=== PATIENT | female | born 1980 | race Hispanic/Latino ===

== ENCOUNTER 2017-04-26 12:02 | Inpatient (IN) | payer OTHER ==
[~2017-04-26] VITALS: Ht 154.9 cm; Wt 88.0 kg
[~2017-04-26 12:02] MED LIST: ADVAIR 500/501 EA INH; ALBUTEROL0.63 MG/3 NEB; BUDESONIDE0.5 MG/2 M NEB; CARAFATE1 GM/10 ML PO; CEFDINIR300 MG PO; CIPRO500 MG PO; GABAPENTIN100 MG; IMITREX25 MG PO; KETOROLAC TROME10 MG PO; LEVAQUIN; LINZESS PO; LORATADINE10 MG PO; LORAZEPAM1 MG PO; MEDROL4 MG/DOSE-; MIRALAX17 GM PO; MORGIDOX100 MG PO; NAPROSYN500 MG PO; NORCO 7.5-3251 EACH PO; OMEPRAZOLE40 MG PO; PANTOPRAZOLE SO40 MG PO; PEPCID20 MG PO; PREDNISONE; PROAIR HFA INH8.5 GM INH; RESTORIL15 MG PO; SINGULAIR10 MG PO; SYMBICORT 16010.2 GM INH; TESSALON PERLE100 MG PO; TOPAMAX25 MG; TYLENOL # 31 EA PO; TYLENOL WITH C1 EACH PO; ULTRAM 50MG50 MG PO; XANAX0.25 MG PO; ZYRTEC10 M3 PO
[2017-04-26] MEDS ORDERED: AZITHROMYCIN 500MG/NS 250 ML 250 ML IV SCH (12:15)
--- NOTE | 2017-04-26 14:07 | Diagnostic Imaging Report ---
PROCEDURE: X-RAY CHEST, TWO VIEWS COMPARISON: 01/10/2017. INDICATIONS: COUGH FINDINGS: Lung volumes are low with vascular crowding in the bases. No consolidation, pleural effusion, or pneumothorax. Cardiomediastinal contour and pulmonary vasculature are within normal limits. No acute osseous abnormality. CONCLUSION: Low lung volumes without acute cardiopulmonary abnormality. Dictated by: Sotero Da Silva M.D. on 04/26/2017 at 14:16 Electronically approved by: Sotero Da Silva M.D. on 04/26/2017 at 14:16
[2017-04-26 14:36] LABS: BASOPHILS % 0.6 % (0.0-1.0); EOSINOPHILS # (AUTO) 0.1 (0.0-0.4); HEMATOCRIT 39.6 % (34.2-44.1); HEMOGLOBIN 13.2 g/dL (12.0-16.0); LYMPHOCYTES # (AUTO) 0.9 (1.0-3.2); MEAN CORPUSCULAR HEMOGLOBIN 28.4 pg (28-32); MEAN CORPUSCULAR HGB CONC 33.3 g/dL (31-35); MEAN CORPUSCULAR VOLUME 85.3 fL (81-99); MONOCYTES # (AUTO) 0.2 (0.2-0.8); MONOCYTES % 3.1 % (4.4-11.3); NEUTROPHILS # (AUTO) 5.8 (2.1-6.9); NEUTROPHILS % 82.5 % (38.7-80.0); PLATELET COUNT 181 x10e3/uL (140-360); RED BLOOD COUNT 4.64 x10e6/uL (3.6-5.1); RED CELL DISTRIBUTION WIDTH 12.4 % (11.7-14.4)
[2017-04-26 14:52] LABS: ALANINE AMINOTRANSFERASE 19 IU/L (0-55); ALBUMIN 3.8 g/dL (3.5-5.0); ALBUMIN/GLOBULIN RATIO 1.2 (0.8-2.0); ALKALINE PHOSPHATASE 71 IU/L (40-150); ANION GAP 13.3 mmol/L (8-16); BLOOD UREA NITROGEN 15 mg/dL (7-26); BUN/CREATININE RATIO 19 (6-25); CALCIUM 9.1 mg/dL (8.4-10.2); CARBON DIOXIDE 27 mmol/L (22-29); CHLORIDE 107 mmol/L (98-107); CREATININE, SERUM 0.78 mg/dL (0.57-1.11); EST GLOMERULAR FILTRATION RATE > 60 ML/MIN (60-); GLUCOSE 85 mg/dL (74-118); POTASSIUM 3.3 mmol/L (3.5-5.1); SODIUM 144 mmol/L (136-145)
[2017-04-26] MEDS ORDERED: ALBUTEROL SULF 0.083% NEB SOLN 3 ML NEB NEB SCH (15:00)
[2017-04-26] MEDS ORDERED: ASPIRIN 81 MG CHEW TAB PO ONE (16:15)
[2017-04-26] MEDS ORDERED: ALBUTEROL/IPRATROPIUM 3 ML NEB NEB PRN (16:15)
[2017-04-26] MEDS ORDERED: SODIUM CHLORIDE FLUSH 10 ML SYR INJ PRN (16:15)
[2017-04-26 16:47] LABS: CREATINE KINASE MB 0.6 ng/mL (0.00-5.00)
[2017-04-26] MEDS: CEFTRIAXONE SOD 1 GM VIAL IV SCH (18:37)
[2017-04-26] MEDS ORDERED: METHYLPREDNISOLONE SOD SUCC 125 MG/2ML VIAL IV SCH (21:00)
[2017-04-26] MEDS: ZOLPIDEM TARTRATE 10 MG TAB PO PRN (21:10)
[2017-04-26] MEDS: HYDROCODONE/APAP 5MG-325MG TAB PO PRN (21:10)
[2017-04-26 21:26] VITALS: BP 107/71
[2017-04-26 21:37] VITALS: BP 107/71
[2017-04-26] MEDS: METHYLPREDNISOLONE SOD SUCC 125 MG/2ML VIAL IV SCH (21:51)
[2017-04-26 22:36] VITALS: BP 98/67
[2017-04-26] MEDS: ALBUTEROL/IPRATROPIUM 3 ML NEB NEB SCH (23:10)
[2017-04-27] VITALS (8 sets, daily range): BP systolic 89–136; BP diastolic 54–67
[2017-04-27 00:57] LABS: CREATINE KINASE MB 0.5 ng/mL (0.00-5.00)
[2017-04-27] MEDS ORDERED: HYDROMORPHONE 1MG/1ML INJ IV ONE (02:30)
[2017-04-27] MEDS ORDERED: HYDROMORPHONE 2MG/ML INJ IV ONE (03:15)
[2017-04-27] MEDS: ALBUTEROL/IPRATROPIUM 3 ML NEB NEB SCH ×6 (03:25→23:25)
[2017-04-27] MEDS: METHYLPREDNISOLONE SOD SUCC 125 MG/2ML VIAL IV SCH ×3 (05:32→22:08)
[2017-04-27 06:20] LABS: HEMATOCRIT 36.3 % (34.2-44.1); HEMOGLOBIN 12.2 g/dL (12.0-16.0); LYMPHOCYTES # (AUTO) 0.7 (1.0-3.2); LYMPHOCYTES % 9.5 % (18.0-39.1); MEAN CORPUSCULAR HEMOGLOBIN 28.2 pg (28-32); MEAN CORPUSCULAR HGB CONC 33.6 g/dL (31-35); MEAN CORPUSCULAR VOLUME 83.8 fL (81-99); MONOCYTES # (AUTO) 0.1 (0.2-0.8); MONOCYTES % 1.9 % (4.4-11.3); NEUTROPHILS # (AUTO) 6.1 (2.1-6.9); PLATELET COUNT 174 x10e3/uL (140-360); RED BLOOD COUNT 4.33 x10e6/uL (3.6-5.1)
[2017-04-27 06:47] LABS: BLOOD UREA NITROGEN 15 mg/dL (7-26); BUN/CREATININE RATIO 22 (6-25); CALCIUM 9.4 mg/dL (8.4-10.2); CARBON DIOXIDE 21 mmol/L (22-29); CHLORIDE 107 mmol/L (98-107); CREATINE KINASE 36 IU/L (29-168); CREATININE, SERUM 0.68 mg/dL (0.57-1.11); EST GLOMERULAR FILTRATION RATE > 60 ML/MIN (60-); GLUCOSE 135 mg/dL (74-118); SODIUM 141 mmol/L (136-145)
[2017-04-27] MEDS ORDERED: ALBUTEROL SULFATE HFA 8GM INHALATION AEROSOL INH PRN (08:45)
[2017-04-27] MEDS ORDERED: SUMATRIPTAN SUCCINATE 25 MG TAB PO PRN (08:45)
[2017-04-27] MEDS ORDERED: HYDROMORPHONE 1MG/1ML INJ IV PRN (09:00)
[2017-04-27] MEDS: SUCRALFATE 1 GM/10 ML SUSP PO SCH (09:36)
[2017-04-27] MEDS: FAMOTIDINE 20 MG TAB PO SCH ×2 (09:36→17:09)
[2017-04-27] MEDS: MONTELUKAST SODIUM 10 MG TAB PO SCH (09:36)
[2017-04-27] MEDS: PANTOPRAZOLE SOD 40 MG TABEC PO SCH ×2 (09:36→17:09)
[2017-04-27] MEDS: AZITHROMYCIN 500MG/NS 250 ML 250 ML IV SCH (09:36)
[2017-04-27] MEDS: HYDROCODONE/APAP 5MG-325MG TAB PO PRN (09:41)
[2017-04-27] MEDS: GABAPENTIN 100 MG CAP PO SCH ×3 (09:41→22:08)
[2017-04-27] MEDS: BUDESONIDE/FORMOTEROL 160/4.5MCG INHALER INH PRN (11:00)
--- NOTE | 2017-04-27 12:55 | Diagnostic Imaging Report ---
Examination: CT Face without Contrast History:Nasal congestion. Asthma. Acute sinusitis. Comparison studies: None Technique: Axial images were obtained through the maxillofacial region. Coronal and sagittal reconstructions obtained from the axial data. Intravenous contrast: None Findings: Soft tissues: No abnormalities. Bones: No fractures or bony abnormalities. Orbits: Globes: Intact Extra or intraconal abnormalities: None. Paranasal sinuses: Retention cyst along the alveolar recess of the right maxillary sinus. Patent right ostiomeatal unit. There is an impacted left maxillary molar tooth. Remaining paranasal sinuses are clear which included their respective drainage pathways. Nasal cavity: Mild hypertrophy of the bilateral inferior and middle turbinates. Aerated bilateral middle turbinates. Leftward deviation of the nasal septum with a small spur. IMPRESSION: 1. Retention cyst within the right maxillary sinus. Patent right ostiomeatal unit. 2. Impacted left maxillary molar tooth in the alveolar recess of the left maxillary sinus. 3. Leftward deviation of the nasal septum with small spur. Signed by: Dr. Allison Beltre M.D. on 04/27/2017 12:51 PM
[2017-04-27] MEDS: HYDROMORPHONE 2MG/ML INJ IV PRN ×2 (14:05→20:34)
[2017-04-27] MEDS ORDERED: GABAPENTIN 100 MG CAP PO SCH (15:00)
[2017-04-27] MEDS: CEFTRIAXONE SOD 1 GM VIAL IV SCH (17:09)
[2017-04-27] MEDS: ZOLPIDEM TARTRATE 10 MG TAB PO PRN (22:13)
[2017-04-28 00:19] VITALS: BP 93/70
[2017-04-28] MEDS: HYDROMORPHONE 2MG/ML INJ IV PRN ×5 (02:59→22:52)
[2017-04-28] MEDS: ALBUTEROL/IPRATROPIUM 3 ML NEB NEB SCH ×5 (03:10→20:15)
[2017-04-28 06:32] VITALS: BP 93/61
[2017-04-28 08:00] VITALS: BP 105/57
[2017-04-28] MEDS ORDERED: SODIUM CHLORIDE 0.9% 250ML 250 ML ONE (09:32)
[2017-04-28] MEDS: MONTELUKAST SODIUM 10 MG TAB PO SCH (09:45)
[2017-04-28] MEDS: AZITHROMYCIN 500MG/NS 250 ML 250 ML IV SCH (09:45)
[2017-04-28] MEDS: PANTOPRAZOLE SOD 40 MG TABEC PO SCH ×2 (09:45→16:20)
[2017-04-28] MEDS: ONDANSETRON HCL INJ 2 MG/ML VIAL IV PRN ×2 (09:45→22:52)
[2017-04-28] MEDS: GABAPENTIN 100 MG CAP PO SCH ×3 (09:45→20:47)
[2017-04-28] MEDS: METHYLPREDNISOLONE SOD SUCC 125 MG/2ML VIAL IV SCH ×2 (09:45→20:47)
[2017-04-28] MEDS: SUCRALFATE 1 GM/10 ML SUSP PO SCH (09:45)
[2017-04-28] MEDS: FAMOTIDINE 20 MG TAB PO SCH ×2 (09:45→16:20)
[2017-04-28 12:00] VITALS: BP_SYST 98; BP_SYST 99; BP_DIAS 62; BP_DIAS 63
[2017-04-28 16:00] VITALS: BP 118/62
[2017-04-28] MEDS: CEFTRIAXONE SOD 1 GM VIAL IV SCH (16:20)
[2017-04-28 20:00] VITALS: BP 107/61
[2017-04-28] MEDS: SALINE 0.65% NAS SOLN 1 SPRAY BTL SCH (20:47)
[2017-04-28] MEDS: IPRATROPIUM BROMIDE 0.06% 42 MCG NASPR NS SCH (21:00)
[2017-04-28] MEDS ORDERED: LORATADINE 10 MG TAB PO ONE (21:30)
[2017-04-28] MEDS: ZOLPIDEM TARTRATE 10 MG TAB PO PRN (22:08)
[2017-04-29] VITALS: BP 110/66
[2017-04-29] MEDS ORDERED: DIPHENHYDRAMINE HCL INJ 50 MG/ML VIAL IV STA (00:05)
[2017-04-29] MEDS ORDERED: DIPHENHYDRAMINE HCL INJ 1 ML ONE (00:12)
[2017-04-29] MEDS: ALBUTEROL/IPRATROPIUM 3 ML NEB NEB SCH ×6 (00:45→21:15)
--- NOTE | 2017-04-29 00:57 | Consultation ---
DATE OF CONSULTATION: April 28, 2017 HOSPITAL CONSULTATION HISTORY OF PRESENT ILLNESS: I was kindly asked to see this pleasant 36-year-old woman known to me from previous evaluation and treatment, now presented with an exacerbation of her chronic asthma. She has a long history of chronic rhinosinusitis and approximately 18 months ago underwent balloon sinuplasty by me. She did well in the immediate postoperative period with significant improvement with her facial pain and pressure. However, she has had continued postnasal drainage and intermittent anterior facial pain and pressure. In addition, she has had multiple and severe exacerbations of her asthma which has been recalcitrant to medical therapy. She has required multiple hospitalizations. During this admission, she had a CT scan of her paranasal sinuses which showed a retention cyst in the right maxillary sinus and a patent right ostiomeatal unit. She had impacted left maxillary and molar tooth in the alveolar recess and a left nasal septal deviation with a small spur. In addition, she had a maury bullosa of the middle turbinate bilaterally. Her history of present illness, past medical history, and past surgical history were reviewed in detail in the chart and is pertinent as above. PHYSICAL EXAMINATION: The tympanic membranes and external auditory canals are normal. There is a moderate nasal septal deviation to the left. There is minimum mucosal edema. She has a thick postnasal drainage. There is no palpable cervical adenopathy on fiberoptic diagnostic rhinoscopy. There is no active infection identified at the ostiomeatal complex bilaterally. ASSESSMENT 1. Chronic rhinosinusitis. 2. Possible allergy contributing to symptom complex. 3. Nasal septal deviation. PLAN 1. No additional inpatient surgical intervention indicated at this time. 2. Outpatient allergy evaluation and consideration of surgical intervention versus immunotherapy based on clinical course. 3. Topical therapy while in the hospital with Flonase, ipratropium, and nasal saline. Job#: [id number] SANJAY
[2017-04-29] MEDS: HYDROMORPHONE 2MG/ML INJ IV PRN ×5 (03:00→21:50)
[2017-04-29] MEDS: ONDANSETRON HCL INJ 2 MG/ML VIAL IV PRN ×2 (03:00→21:50)
[2017-04-29] MEDS: SALINE 0.65% NAS SOLN 1 SPRAY BTL SCH ×5 (05:25→21:50)
[2017-04-29 08:00] VITALS: BP 131/62
[2017-04-29] MEDS: IPRATROPIUM BROMIDE 0.06% 42 MCG NASPR NS SCH ×3 (09:00→22:05)
[2017-04-29] MEDS: BUDESONIDE/FORMOTEROL 160/4.5MCG INHALER INH PRN (10:00)
[2017-04-29] MEDS: AZITHROMYCIN 500MG/NS 250 ML 250 ML IV SCH (10:23)
[2017-04-29] MEDS: FLUTICASONE PROPIONATE NASAL SPRAY NS SCH (10:24)
[2017-04-29] MEDS: GABAPENTIN 100 MG CAP PO SCH ×3 (10:24→21:50)
[2017-04-29] MEDS: SUCRALFATE 1 GM/10 ML SUSP PO SCH (10:24)
[2017-04-29] MEDS: FAMOTIDINE 20 MG TAB PO SCH ×2 (10:24→16:49)
[2017-04-29] MEDS: METHYLPREDNISOLONE SOD SUCC 125 MG/2ML VIAL IV SCH ×2 (10:24→21:49)
[2017-04-29] MEDS: PANTOPRAZOLE SOD 40 MG TABEC PO SCH ×2 (10:24→16:49)
[2017-04-29] MEDS ORDERED: DIPHENHYDRAMINE HCL INJ 50 MG/ML VIAL IV ONE (11:00)
[2017-04-29 12:00] VITALS: BP 135/60
[2017-04-29] MEDS: MONTELUKAST SODIUM 10 MG TAB PO SCH (13:50)
[2017-04-29] MEDS: DIPHENHYDRAMINE HCL INJ 50 MG/ML VIAL IV PRN ×3 (15:32→23:40)
[2017-04-29 16:00] VITALS: BP 110/73
[2017-04-30] MEDS: ZOLPIDEM TARTRATE 10 MG TAB PO PRN (00:06)
[2017-04-30] MEDS: HYDROMORPHONE 2MG/ML INJ IV PRN ×5 (01:56→20:55)
[2017-04-30] MEDS: ONDANSETRON HCL INJ 2 MG/ML VIAL IV PRN ×2 (02:00→06:14)
[2017-04-30] MEDS: ALBUTEROL/IPRATROPIUM 3 ML NEB NEB SCH ×7 (02:00→23:17)
[2017-04-30] MEDS: DIPHENHYDRAMINE HCL INJ 50 MG/ML VIAL IV PRN ×4 (03:51→21:35)
[2017-04-30] MEDS: SALINE 0.65% NAS SOLN 1 SPRAY BTL SCH ×5 (06:14→20:55)
[2017-04-30 07:58] VITALS: BP 117/66
[2017-04-30 08:24] VITALS: BP 117/60
[2017-04-30] MEDS: IPRATROPIUM BROMIDE 0.06% 42 MCG NASPR NS SCH ×2 (08:24→15:57)
[2017-04-30] MEDS: METHYLPREDNISOLONE SOD SUCC 125 MG/2ML VIAL IV SCH ×2 (08:24→20:55)
[2017-04-30] MEDS: AZITHROMYCIN 500MG/NS 250 ML 250 ML IV SCH (08:24)
[2017-04-30] MEDS: FLUTICASONE PROPIONATE NASAL SPRAY NS SCH (08:24)
[2017-04-30] MEDS: SUCRALFATE 1 GM/10 ML SUSP PO SCH (09:00)
[2017-04-30] MEDS: GABAPENTIN 100 MG CAP PO SCH ×3 (09:00→20:55)
[2017-04-30] MEDS: PANTOPRAZOLE SOD 40 MG TABEC PO SCH ×2 (09:00→16:04)
[2017-04-30] MEDS: FAMOTIDINE 20 MG TAB PO SCH ×2 (09:00→16:04)
[2017-04-30] MEDS: MONTELUKAST SODIUM 10 MG TAB PO SCH (09:00)
[2017-04-30 12:11] VITALS: BP 109/59
[2017-04-30] MEDS ORDERED: OXYMETAZOLINE HCL 0.05% NAS 1 SPRAY BTL ONE (14:06)
[2017-04-30] MEDS ORDERED: EPINEPHRINE HCL INJ 1 MG/ML AMP ONE (14:06)
[2017-04-30] MEDS ORDERED: LIDOCAINE JELLY 2% 10ML URO-JET ONE (14:06)
[2017-04-30] MEDS ORDERED: LIDOCAINE HCL 1% 30ML-PF VIAL ONE (14:07)
[2017-04-30] MEDS ORDERED: LIDOCAINE HCL 4% 50 ML BTL ONE (14:08)
[2017-04-30 16:19] VITALS: BP 111/73
[2017-04-30] MEDS ORDERED: DEXAMETHASONE SOD PHOS INJ 4 MG/ML VIAL ONE (17:12)
[2017-04-30] MEDS ORDERED: PROPOFOL IV EMULSION 10 MG/ML 20 ML VIAL ONE (17:12)
[2017-04-30] MEDS ORDERED: LIDOCAINE HCL 2% LOCAL INJ 5 ML SDV VIAL INJ ONE (17:12)
[2017-04-30] MEDS ORDERED: MIDAZOLAM HCL 5MG/ML 2ML VIAL ONE (17:16)
[2017-04-30] MEDS ORDERED: FENTANYL CITRATE/PF 100MCG/2 ML INJ ONE (17:16)
[2017-04-30 20:00] VITALS: BP 98/85
[2017-05-01] VITALS: BP_SYST 103; BP_SYST 106; BP_DIAS 69; BP_DIAS 78
[2017-05-01] MEDS: ZOLPIDEM TARTRATE 10 MG TAB PO PRN (00:53)
[2017-05-01] MEDS: HYDROMORPHONE 2MG/ML INJ IV PRN ×4 (00:54→20:33)
[2017-05-01] MEDS: DIPHENHYDRAMINE HCL INJ 50 MG/ML VIAL IV PRN ×5 (02:07→22:30)
[2017-05-01] MEDS: ALBUTEROL/IPRATROPIUM 3 ML NEB NEB SCH ×3 (03:07→11:30)
[2017-05-01] MEDS: ONDANSETRON HCL INJ 2 MG/ML VIAL IV PRN ×2 (03:52→22:55)
[2017-05-01] MEDS: SALINE 0.65% NAS SOLN 1 SPRAY BTL SCH ×5 (05:50→20:33)
[2017-05-01 07:24] VITALS: BP 109/66
[2017-05-01] MEDS ORDERED: SUCRALFATE 1 GM/10 ML SUSP PO SCH (07:30)
[2017-05-01 07:35] VITALS: BP 116/68
[2017-05-01] MEDS: FAMOTIDINE 20 MG TAB PO SCH ×2 (08:32→16:00)
[2017-05-01] MEDS: GABAPENTIN 100 MG CAP PO SCH ×3 (08:32→20:33)
[2017-05-01] MEDS: METHYLPREDNISOLONE SOD SUCC 125 MG/2ML VIAL IV SCH ×2 (08:32→20:33)
[2017-05-01] MEDS: AZITHROMYCIN 500MG/NS 250 ML 250 ML IV SCH (08:32)
[2017-05-01] MEDS: PANTOPRAZOLE SOD 40 MG TABEC PO SCH ×2 (08:32→16:00)
[2017-05-01] MEDS: FLUTICASONE PROPIONATE NASAL SPRAY NS SCH (08:32)
[2017-05-01] MEDS: MONTELUKAST SODIUM 10 MG TAB PO SCH (08:32)
[2017-05-01] MEDS: SUCRALFATE 1 GM TAB PO SCH (08:32)
[2017-05-01 12:00] VITALS: BP 116/68
[2017-05-01] MEDS: VANCOMYCIN 1GM/NS 250 ML 250 ML IV SCH (14:18)
[2017-05-01] MEDS: LEVALBUTEROL HCL SOLN NEBU 1.25 MG/3 ML NEB INH SCH ×3 (15:10→23:30)
[2017-05-01 16:00] VITALS: BP 112/75
[2017-05-01] MEDS: HYDROCODONE/APAP 5MG-325MG TAB PO PRN (16:00)
[2017-05-01] MEDS: IPRATROPIUM BROMIDE 0.06% 42 MCG NASPR NS SCH (19:50)
[2017-05-01 23:00] VITALS: BP 107/70
[2017-05-02] MEDS: VANCOMYCIN 1GM/NS 250 ML 250 ML IV SCH ×2 (00:51→15:59)
[2017-05-02] MEDS: HYDROMORPHONE 2MG/ML INJ IV PRN ×6 (00:51→22:00)
[2017-05-02] MEDS: DIPHENHYDRAMINE HCL INJ 50 MG/ML VIAL IV PRN ×2 (02:29→06:45)
[2017-05-02] MEDS: LEVALBUTEROL HCL SOLN NEBU 1.25 MG/3 ML NEB INH SCH ×5 (03:22→19:45)
[2017-05-02 04:00] VITALS: BP 108/71
[2017-05-02] MEDS: ONDANSETRON HCL INJ 2 MG/ML VIAL IV PRN (05:02)
[2017-05-02 06:43] LABS: BASOPHILS # (AUTO) 0.1 (0.0-0.1); HEMATOCRIT 37.4 % (34.2-44.1); HEMOGLOBIN 12.6 g/dL (12.0-16.0); LYMPHOCYTES # (AUTO) 0.6 (1.0-3.2); LYMPHOCYTES % 6.5 % (18.0-39.1); MEAN CORPUSCULAR HEMOGLOBIN 28.6 pg (28-32); MEAN CORPUSCULAR HGB CONC 33.7 g/dL (31-35); MEAN CORPUSCULAR VOLUME 84.8 fL (81-99); MONOCYTES # (AUTO) 0.7 (0.2-0.8); MONOCYTES % 7.3 % (4.4-11.3); NEUTROPHILS # (AUTO) 6.8 (2.1-6.9); NEUTROPHILS % 75.5 % (38.7-80.0); PLATELET COUNT 179 x10e3/uL (140-360); RED BLOOD COUNT 4.41 x10e6/uL (3.6-5.1); RED CELL DISTRIBUTION WIDTH 12.3 % (11.7-14.4)
[2017-05-02] MEDS: SALINE 0.65% NAS SOLN 1 SPRAY BTL SCH ×5 (06:45→21:07)
[2017-05-02 07:11] LABS: ALANINE AMINOTRANSFERASE 41 IU/L (0-55); ALBUMIN 3.3 g/dL (3.5-5.0); ALKALINE PHOSPHATASE 70 IU/L (40-150); ANION GAP 13.7 mmol/L (8-16); BLOOD UREA NITROGEN 14 mg/dL (7-26); BUN/CREATININE RATIO 20 (6-25); CALCIUM 9.2 mg/dL (8.4-10.2); CARBON DIOXIDE 26 mmol/L (22-29); CHLORIDE 102 mmol/L (98-107); CREATININE, SERUM 0.69 mg/dL (0.57-1.11); EST GLOMERULAR FILTRATION RATE > 60 ML/MIN (60-); GLUCOSE 117 mg/dL (74-118); POTASSIUM 3.7 mmol/L (3.5-5.1); SODIUM 138 mmol/L (136-145)
[2017-05-02 07:20] VITALS: BP 109/71
[2017-05-02 08:44] VITALS: BP 109/71
[2017-05-02] MEDS: METHYLPREDNISOLONE SOD SUCC 125 MG/2ML VIAL IV SCH ×2 (08:57→21:07)
[2017-05-02] MEDS: AZITHROMYCIN 500MG/NS 250 ML 250 ML IV SCH (08:57)
[2017-05-02] MEDS: SUCRALFATE 1 GM TAB PO SCH (08:57)
[2017-05-02] MEDS: FLUTICASONE PROPIONATE NASAL SPRAY NS SCH (08:58)
[2017-05-02] MEDS: PANTOPRAZOLE SOD 40 MG TABEC PO SCH ×2 (08:58→17:23)
[2017-05-02] MEDS: MONTELUKAST SODIUM 10 MG TAB PO SCH (08:58)
[2017-05-02] MEDS: GABAPENTIN 100 MG CAP PO SCH ×3 (08:58→21:07)
[2017-05-02] MEDS: FAMOTIDINE 20 MG TAB PO SCH ×2 (08:58→17:23)
[2017-05-02] MEDS: IPRATROPIUM BROMIDE 0.06% 42 MCG NASPR NS SCH (09:13)
[2017-05-02 11:08] LABS: LYMPHOCYTES % (MANUAL) 14 % (19-48); MONOCYTES % (MANUAL) 6 % (3.4-9.0); NEUTROPHILS % (MANUAL) 80 % (40-74); PLATELET MORPHOLOGY COMMENT NORMAL; RBC MORPHOLOGY COMMENT NORMAL
[2017-05-02 11:09] LABS: PLATELET ESTIMATE ADEQUATE
[2017-05-02] MEDS ORDERED: TEMAZEPAM 15 MG CAP PO PRN (11:45)
[2017-05-02 12:00] VITALS: BP 106/72
[2017-05-02] MEDS: PROMETHAZINE 12.5MG/ NACL 0.9% 12.5 MG/50 ML BAG IV PRN ×2 (14:58→22:15)
[2017-05-02 16:00] VITALS: BP 104/67
[2017-05-02] MEDS ORDERED: VANCOMYCIN HCL 1.25 GM in SODIUM CHLORIDE 0.9% 250ML 300 ML IV SCH (16:30)
--- NOTE | 2017-05-02 16:35 | Consultation ---
DATE OF CONSULTATION: May 02, 2017 REASON FOR CONSULTATION: Hypogammaglobulinemia. Thank you, Dr. Galindo, for asking me to see this female. HISTORY: The patient is a 36-year-old woman referred for hypogammaglobulinemia. She was admitted with exacerbation of chronic persistent asthma. She presented on April 26, 2017, with severe wheezing, shortness of breath and cough. At triage, she was noted to have temperature of 98.6 degrees Fahrenheit, pulse 87, respiratory rate 20, blood pressure 117/81, and oxygen saturation 99% (FIO2 unknown). Initial laboratory studies showed white blood cell count of 7060 and negative influenza antigen test. Chest x-ray showed low lung volumes without acute abnormality. The patient was evaluated with bronchoscopy and bronchoalveolar lavage later grew methicillin-resistant Staphylococcus aureus. Also, the patient had a immunoglobulin test, which showed low immunoglobulin G and immunoglobulin A. 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 However, she claims that she was told that she could not donate blood); gastroesophageal reflux disease and depression. PAST SURGICAL HISTORY: Balloon sinuplasty, hysterectomy for large fibroid, bilateral oophorectomy for ovarian cysts, appendectomy, pelvic abscess drainage. ALLERGIES: ASPIRIN, ?? CEFTRIAXONE. HOWEVER, THE PATIENT IS UNSURE IF CEFTRIAXONE ACTUALLY CAUSED ALLERGIES. SHE HAD ITCHING ON MULTIPLE MEDICATIONS, WHICH WAS BLAMED ON CEFTRIAXONE. MEDICATIONS: See MAR. The current antimicrobials are: 1. Azithromycin 500 mg IVPB q.24 h. 2. Vancomycin 1 g IVPB q.12 h. 3. Fluconazole 100 mg p.o. daily for oral thrush. IMMUNIZATIONS: The patient no longer receives influenza vaccination because she claims that each time she got it she became sick and was admitted to the hospital. She does not recall receiving a pneumococcal vaccination, and wants to consider getting pneumococcal vaccination. FAMILY HISTORY: Noncontributory. SOCIAL HISTORY: No alcohol or tobacco use. REVIEW OF SYSTEMS: As per history of present illness. PHYSICAL EXAMINATION GENERAL: Mildly dyspneic. VITAL SIGNS: T-max 98, pulse 83, respiratory rate 18, blood pressure 116/68, weight 194 pounds. HEENT: Normocephalic. There is no icterus or injection of conjunctivae. There is no ear discharge. There is edema of nasal mucosa, but no discharge. Moist oral mucosa. Mild pharyngeal erythema, but no exudate. NECK: Supple. No lymphadenopathy. LUNGS: Bilateral rhonchi. HEART: Normal S1 and S2. ABDOMEN: Soft and nontender. EXTREMITIES: There is no edema, clubbing or cyanosis. SKIN: There is mild erythema of the left antecubital fossa. BRAZING FURNACE OPERATOR: Awake, alert and oriented to person, place and time. Nonfocal. LABORATORY: WBC 9030, hemoglobin 12.6, platelets 179,000, neutrophils 75.5, lymphs 6.5, monos 7.3, eosinophils 0, basophils 1. BUN 14, creatinine 0.69, AST 31, ALT 41, alk phos 70, total bilirubin 0.3. Vancomycin trough 4. IMPRESSION 1. Methicillin-resistant Staphylococcus aureus bronchitis. 2. Chronic persistent asthma with acute exacerbation. 3. Hypogammaglobulinemia. 4. Methicillin-resistant Staphylococcus aureus nasal colonization by history. 5. Chronic rhinosinusitis. PLAN 1. Change vancomycin to 15 mg/kg IVPB q.12 h. The patient should be given pneumococcal vaccination if she agrees. Stop azithromycin. 2. The patient should be referred to allergy pump assembler for outpatient immune globulin testing following immunization. Job#: [id number] LEORA GRACE
[2017-05-02] MEDS: TOBRAMYCIN 1.2GM BULK BOTTLE INH SCH (20:15)
[2017-05-02 20:48] VITALS: BP 106/77
[2017-05-03] MEDS: LEVALBUTEROL HCL SOLN NEBU 1.25 MG/3 ML NEB INH SCH ×6 (00:15→23:45)
[2017-05-03 01:42] VITALS: BP 104/78
[2017-05-03] MEDS: HYDROMORPHONE 2MG/ML INJ IV PRN ×5 (03:49→23:52)
[2017-05-03] MEDS: VANCOMYCIN HCL 1.25 GM in SODIUM CHLORIDE 0.9% 250ML 300 ML IV SCH ×2 (03:58→16:00)
[2017-05-03 05:09] VITALS: BP 110/67
[2017-05-03] MEDS: SALINE 0.65% NAS SOLN 1 SPRAY BTL SCH ×5 (05:26→21:49)
[2017-05-03] MEDS: PROMETHAZINE 12.5MG/ NACL 0.9% 12.5 MG/50 ML BAG IV PRN ×2 (06:07→21:57)
[2017-05-03] MEDS: TOBRAMYCIN 1.2GM BULK BOTTLE INH SCH (07:45)
[2017-05-03 08:00] VITALS: BP 107/76
[2017-05-03] MEDS: FLUTICASONE PROPIONATE NASAL SPRAY NS SCH (09:00)
[2017-05-03] MEDS: FAMOTIDINE 20 MG TAB PO SCH ×2 (09:30→16:59)
[2017-05-03] MEDS: SUCRALFATE 1 GM TAB PO SCH (09:30)
[2017-05-03] MEDS: GABAPENTIN 100 MG CAP PO SCH ×3 (09:30→21:49)
[2017-05-03] MEDS: MONTELUKAST SODIUM 10 MG TAB PO SCH (09:30)
[2017-05-03] MEDS: PANTOPRAZOLE SOD 40 MG TABEC PO SCH ×2 (09:30→16:59)
[2017-05-03] MEDS: METHYLPREDNISOLONE SOD SUCC 125 MG/2ML VIAL IV SCH ×2 (09:30→21:49)
[2017-05-03 12:00] VITALS: BP 103/76
[2017-05-03] MEDS: FLUCONAZOLE 100 MG TAB PO SCH (14:08)
--- NOTE | 2017-05-03 15:09 | Diagnostic Imaging Report ---
PROCEDURE: Frontal and lateral views of the chest. COMPARISON: 04/26/17 INDICATIONS: CHRONIC ASTHMA, LUNG INFECTION FINDINGS: Lines/tubes: None. Lungs: The lungs are well inflated and clear. There is no evidence of pneumonia or pulmonary edema. Pleura: There is no pleural effusion or pneumothorax. Heart and mediastinum: The heart and the mediastinum are normal. Bones: No acute bony abnormality. IMPRESSION: 1. No acute cardiopulmonary disease. Dictated by: Ronald Herrera M.D. on 05/03/2017 at 15:17 Electronically approved by: Ronald Herrera M.D. on 05/03/2017 at 15:17
[2017-05-03 16:00] VITALS: BP 103/83
[2017-05-03 20:00] VITALS: BP 93/68
--- NOTE | 2017-05-03 20:40 | Diagnostic Imaging Report ---
EXAMINATION: CHEST XRAY LINE PLACEMENT INDICATION: \S\picc line placement \S\[id number] \S\1941 COMPARISON: Chest radiograph 05/03/2017 at 1434 hours FINDINGS: AP view TUBES and LINES: Right PICC tip overlies the mid superior vena cava. LUNGS: Lungs are well inflated. Lungs are clear. There is no evidence of pneumonia or pulmonary edema. PLEURA: No pleural effusion or pneumothorax. HEART AND MEDIASTINUM: The cardiomediastinal silhouette is unremarkable. BONES AND SOFT TISSUES: No acute osseous lesion. Soft tissues are unremarkable. UPPER ABDOMEN: No free air under the diaphragm. IMPRESSION: Right PICC tip overlies the mid superior vena cava. No acute thoracic abnormality. Signed by: DR. Amol Cho MD on 05/03/2017 8:36 PM
[2017-05-03] MEDS: IPRATROPIUM BROMIDE 0.06% 42 MCG NASPR NS SCH (21:00)
[2017-05-04] MEDS: LEVALBUTEROL HCL SOLN NEBU 1.25 MG/3 ML NEB INH SCH ×4 (03:40→15:05)
[2017-05-04] MEDS: VANCOMYCIN HCL 1.25 GM in SODIUM CHLORIDE 0.9% 250ML 300 ML IV SCH ×2 (03:51→16:00)
[2017-05-04] MEDS: HYDROMORPHONE 2MG/ML INJ IV PRN ×5 (03:52→19:14)
[2017-05-04] MEDS: SALINE 0.65% NAS SOLN 1 SPRAY BTL SCH ×4 (05:17→18:00)
[2017-05-04] MEDS: BUDESONIDE/FORMOTEROL 160/4.5MCG INHALER INH PRN (07:25)
[2017-05-04] MEDS: TOBRAMYCIN 1.2GM BULK BOTTLE INH SCH (07:30)
[2017-05-04] MEDS: SUCRALFATE 1 GM TAB PO SCH (07:45)
[2017-05-04] MEDS: PANTOPRAZOLE SOD 40 MG TABEC PO SCH ×2 (08:00→15:55)
[2017-05-04] MEDS: FAMOTIDINE 20 MG TAB PO SCH ×2 (08:00→15:55)
[2017-05-04] MEDS: FLUCONAZOLE 100 MG TAB PO SCH (08:00)
[2017-05-04] MEDS: MONTELUKAST SODIUM 10 MG TAB PO SCH (08:00)
[2017-05-04] MEDS: GABAPENTIN 100 MG CAP PO SCH ×2 (08:00→15:55)
[2017-05-04 08:13] VITALS: BP 98/71
[2017-05-04] MEDS: FLUTICASONE PROPIONATE NASAL SPRAY NS SCH (09:00)
[2017-05-04] MEDS: PROMETHAZINE 12.5MG/ NACL 0.9% 12.5 MG/50 ML BAG IV PRN (11:00)
[2017-05-04] MEDS: METHYLPREDNISOLONE SOD SUCC 125 MG/2ML VIAL IV SCH (11:45)
[2017-05-04 12:00] VITALS: BP 115/78
[2017-05-04 16:24] VITALS: BP 122/68
--- NOTE | 2017-06-14 13:01 | Operative Report ---
DATE OF PROCEDURE: PROCEDURE PERFORMED: Bronchoscopy. CONSENT: Consent was obtained from the patient. ANESTHESIA: The anesthesia service provided MAC sedation. PROCEDURE: The patient was placed in the supine position. The upper airway was visualized. It was normal. The scope was advanced into the trachea. The tracheal mucosa was normal. The ramon appeared normal. The scope was repositioned into the right tracheobronchial tree. Mucus was removed from the right mainstem bronchus and bronchus intermedius. Mucus was also removed from the right upper lobe orifice as well as the right lower lobe orifice. There were no endobronchial lesions to the subsegmental level. The scope was then repositioned into the left tracheobronchial tree. The lingula and left upper lobe were examined. Mucus was removed from the orifice. The left lower lobe was examined. Mucus was removed from the orifice. There were no endobronchial lesions. COMPLICATIONS: None. ESTIMATED BLOOD LOSS: None. Job#: [id number] HUGO
--- NOTE | 2017-06-14 13:06 | Discharge Summary ---
DISCHARGE DIAGNOSES 1. Asthma with acute exacerbation. 2. Sinusitis. 3. Hypogammaglobulinemia. 4. Methicillin-resistant Staphylococcus aureus tracheobronchitis. CONSULTING PHYSICIANS: Dr. Florentino Gamboa of infectious disease. HISTORY OF PRESENT ILLNESS: The patient is a 36-year-old with a history of chronic persistent asthma. She has not been responding well to medications as an outpatient including Solu-Medrol and bronchodilators. HOSPITAL COURSE: The patient was admitted. She was started on IV Solu-Medrol along with bronchodilators. She also had a bronchoscopy performed. Her sputum grew out MRSA. She was seen by infectious disease and started on antibiotics. Her immunoglobulin levels were also low. She had a low IgA and a low IgG. The patient was not improving. We did not have immunology available at the hospital. She was consequently transferred to [facility]. DISPOSITION: Patient was transferred to [facility]. COLT MARISCAL MD Job#: [id number] VAS
== END 2017-05-04 19:18 | disposition short-term general hospital (02) | DRG 164 ==
LOC: ER 12:02 → ERHOLD 16:57 → IMCU 18:34 → OBSVTOIN 04-27 09:10 → MED/SURG2 04-27 19:46
PROVIDERS: ADMIT Internal Medicine Critical Care Medicine; ATTEND Internal Medicine Critical Care Medicine
PROC: 0BC68ZZ Extirpation of Matter from Right Lower Lobe Bronchus, Via Natural or Artificial Opening Endoscopic (ICD-10-PCS; 2017-04-30 14:00)
PROC: 0BCG8ZZ Extirpation of Matter from Left Upper Lung Lobe, Via Natural or Artificial Opening Endoscopic (ICD-10-PCS; 2017-04-30 14:00)
PROC: 0BCC8ZZ Extirpation of Matter from Right Upper Lung Lobe, Via Natural or Artificial Opening Endoscopic (ICD-10-PCS; 2017-04-30 14:00)
PROC: 0BCJ8ZZ Extirpation of Matter from Left Lower Lung Lobe, Via Natural or Artificial Opening Endoscopic (ICD-10-PCS; 2017-04-30 14:00)
PROC: 0BC38ZZ Extirpation of Matter from Right Main Bronchus, Via Natural or Artificial Opening Endoscopic (ICD-10-PCS; 2017-04-30 14:00)
PROC: 02HV33Z Insertion of Infusion Device into Superior Vena Cava, Percutaneous Approach (ICD-10-PCS; principal; 2017-05-03)
DX: J20.8 Acute bronchitis due to other specified organisms (principal); J45.51 Severe persistent asthma with (acute) exacerbation; D80.1 Nonfamilial hypogammaglobulinemia; J20.9 Acute bronchitis, unspecified; K21.9 Gastro-esophageal reflux disease without esophagitis; B95.62 Methicillin resistant Staphylococcus aureus infection as the cause of diseases classified elsewhere; Z22.322 Carrier or suspected carrier of Methicillin resistant Staphylococcus aureus; J32.9 Chronic sinusitis, unspecified; J34.2 Deviated nasal septum; Z88.6 Allergy status to analgesic agent; Z88.1 Allergy status to other antibiotic agents; Z91.013 Allergy to seafood; Z91.018 Allergy to other foods
CPT/HCPCS: 31623; 36415; 36569; 70486; 71045; 71046; 80048; 80053; 80202; 82103; 82550; 82553; 82784; 82785; 84484; 85025; 86001; 86003; 86606; 87102; 87116; 87186; 87205; 87206; 87335; 87400; 94640; 94660; 99284; G0378; J0171; J0456; J0696; J1100; J1200; J2001; J2250; J2405; J2550; J2930; J3370; J7050

== ENCOUNTER 2017-05-28 13:17 | Inpatient (IN) | payer OTHER ==
[~2017-05-28] VITALS: Ht 154.9 cm; Wt 103.1 kg
--- OUTSIDE RECORDS SUMMARY | 2017-05-28 13:21 | XMS REPORT ---
Author Author [facility] Address Unknown Phone Unavailable Care Team Providers Care Scalloper Name Role Phone COLT MARISCAL Unavailable Unavailable Problems This patient has no known problems. Allergies, Adverse Reactions, Alerts This patient has no known allergies or adverse reactions. Medications This patient has no known medications. Results Test Description Test Time Test Comments Text Results Atomic Results Result Comments CHEST XRAY LINE PLACEMENT [address] [address] Patient Name: ERIKA WILLSON MR #: [id number] : 1980 Age/Sex: 36/F Req #: [id number] Adm Physician: COLT MARISCAL MD Ordered by: COLT MARISCAL MD Report #: [id number] Location: MED/SURG2 Room/Bed: [facility] ___ Procedure: [id number] DX/CHEST XRAY LINE PLACEMENT Exam Date: 05/03/17 Exam Time: 1941 REPORT STATUS: Signed EXAMINATION: CHEST XRAY LINE PLACEMENT INDICATION: COMPARISON: Chest radiograph 05/03/2017 at 1434 hours FINDINGS: AP view TUBES and LINES: Right PICC tip overlies the mid superior vena cava. LUNGS: Lungs are well inflated. Lungs are clear. There is no evidence of pneumonia or pulmonary edema. PLEURA: No pleural effusion or pneumothorax. HEART AND MEDIASTINUM: The cardiomediastinal silhouette is unremarkable. BONES AND SOFT TISSUES: No acute osseous lesion. Soft tissues are unremarkable. UPPER ABDOMEN: No free air under the diaphragm. IMPRESSION: Right PICC tip overlies the mid superior vena cava. No acute thoracic abnormality. Signed by: DR. Amol Barnes MD on 05/03/2017 8:36 PM Dictated By: AMOL BARNES MD 35 Transcribed By: JASON on 2035 COPY TO: COLT MARISCAL MD CHEST 2 VIEWS [place] [address] Patient Name: ERIKA WILLSON MR #: [id number] : 1980 Age/Sex: 36/F Req #: [id number] Adm Physician: COLT MARISCAL MD Ordered by: COLT MARISCAL MD Report # : [id number] Location: [facility]/SURG2 Room/Bed: [facility] Procedure: [id number] DX/CHEST 2 VIEWS Exam Date: 05/03/17 Exam Time: 1430 REPORT STATUS: Signed PROCEDURE: Frontal and lateral views of the chest. COMPARISON: 04/26/17 INDICATIONS: CHRONIC ASTHMA, LUNG INFECTION FINDINGS: Lines/tubes: None. Lungs: The lungs are well inflated and clear. There is no evidence of pneumonia or pulmonary edema. Pleura: There is no pleural effusion or pneumothorax. Heart and mediastinum: The heart and the mediastinum are normal. Bones: No acute bony abnormality. IMPRESSION: 1. No acute cardiopulmonary disease. Dictated by: Ronald Medina M.D. on at 15:17 Electronically approved by: Ronald Medina M.D. on 05/03 at 15:17 Dictated By: RONALD MEDINA MD 16 Transcribed By: NADINE on 05/03/171516 COPY TO: COLT MARISCAL MD CT MAXIO FAC/PARANAS WO [place] [address] Patient Name: ERIKA WILLSON MR #: [id number] : 1980 Age/Sex: 36/F Req #: [id number] Adm Physician: COLT MARISCAL MD Ordered by: COLT MARISCAL MD Report #: [id number] Location: [facility] Room/Bed: [place] [address] ___ Procedure: [id number] CT/CT MAXIO FAC/PARANAS WO Exam Date: 04/27/17 Exam Time: 1000 REPORT STATUS: Signed Examination: CT Face without Contrast History:Nasal congestion. Asthma. Acute sinusitis. Comparison studies: None Technique: Axial images were obtained through the maxillofacial region. Coronal and sagittal reconstructions obtained from the axial data. Intravenous contrast: None Findings: Soft tissues: No abnormalities. Bones: No fractures or bony abnormalities. Orbits: Globes: Intact Extra or intraconal abnormalities: None. Paranasal sinuses: Retention cyst along the alveolar recess of the right maxillary sinus. Patent right ostiomeatal unit. There is an impacted left maxillary molar tooth. Remaining paranasal sinuses are clear which included their respective drainage pathways. Nasal cavity: Mild hypertrophy of the bilateral inferior and middle turbinates. Aerated bilateral middle turbinates. Leftward deviation of the nasal septum with a small spur. IMPRESSION: 1. Retention cyst within the right maxillary sinus. Patent right ostiomeatal unit. 2. Impacted left maxillary molar tooth in the alveolar recess of the left maxillary sinus. 3. Leftward deviation of the nasal septum with small spur. Signed by: Dr. Allison Beltre M.D. on 04/27/2017 12:51 PM Dictated By: ALLISON CHAMBERS MD 50 Transcribed By: JASON on 04/27/171250 COPY TO: COLT MARISCAL MD CHEST 2 VIEWS [place] [address] Patient Name: ERIKA WILLSON MR #: [id number] : 1980 Age/Sex: 36/F Req #: [id number] Adm Physician: Ordered by: COLT MARISCAL MD Report #: [id number] Location: ER Room/Bed: Procedure: [id number] DX/ CHEST 2 VIEWS Exam Date: Exam Time: REPORT STATUS: Signed PROCEDURE: X-RAY CHEST, TWO VIEWS COMPARISON: 01/10/2017. INDICATIONS: COUGH FINDINGS: Lung volumes are low with vascular crowding in the bases. No consolidation, pleural effusion, or pneumothorax. Cardiomediastinal contour and pulmonary vasculature are within normal limits. No acute osseous abnormality. CONCLUSION: Low lung volumes without acute cardiopulmonary abnormality. Dictated by: Maxx Choudhury M.D. on 04/26/2017 at 14:16 Electronically approved by: Maxx Choudhury M.D. on 04/26/2017 at 14:16 Dictated By: MAXX CHOUDHURY MD 15 Transcribed By: NADINE on 04/26/17 141 COPY TO: COLT MARISCAL MD CHEST SINGLE (PORTABLE) [place] [address] Patient Name: ERIKA WILLSON MR #: [id number] : 1980 Age/Sex: 36/F Req #: [id number] Adm Physician: Ordered by: BONG LUJAN MD Report # : [id number] Location: ER Room/Bed: Procedure: [id number] DX/CHEST SINGLE (PORTABLE) Exam Date: 01/10/17 Exam Time: 1505 REPORT STATUS: Signed EXAMINATION: Chest, CHEST SINGLE (PORTABLE) INDICATION: Asthma COMPARISON: Chest 2 views FINDINGS: LINES: None. Heart: Normal cardiac silhouette. Vascular: The pulmonary vasculature is within normal limits. Mediastinum: No mediastinal, hilar, or axillary mass or lymphadenopathy. Lungs: No parenchymal mass. No focal consolidation. Pleura: No pleural effusion. No pneumothorax. Bones: No acute osseous abnormality. Soft tissues: Normal. Impression: No acute radiographic abnormality. Signed by: Dr. Thuy Chester M.D. on 01/10/2017 3:28 PM Dictated By: THUY CHESTER MD 1528 COPY TO: BONG LUJAN MD PELVIC DOPPLER [place] [address] Patient Name: ERIKA WILLSON MR #: [id number] : 1980 Age/Sex: 36/F Req # : [id number] Adm Physician: Ordered by: BONG LUJAN MD Report #: [id number] Location: ER Room/Bed: Procedure: [id number] US/US PELVIC DOPPLER LTD Exam Date: 01/10/17 Exam Time: 1527 REPORT STATUS: Signed EXAM: Transabdominal and Transvaginal Pelvic Ultrasound INDICATION: Ovarian torsion COMPARISON: None TECHNIQUE: Grayscale transverse and sagittal transabdominal and transvaginal images were obtained of the pelvis. Transvaginal imaging was medically necessary to better evaluate the endometrium and the adnexa. FINDINGS: Uterus: Hysterectomy Right ovary: Size: 2.8 x 1.8 x 2.1 cm Mass/Cyst: 0.8 x 0.7 x 0.5 cm simple cyst. Left ovary: Size: 2.5 x 2.1 x 2.3 cm Mass/Cyst: None Adnexa: Normal Cul-de- sac: No free fluid IMPRESSION: No acute sonographic abnormality. Signed by: Dr. Thuy Chester M.D. on 01/10/2017 4:17 PM Dictated By: THUY CHESTER MD 16 Transcribed By: JASON on 01/10/171616 COPY TO: BONG LUJAN MD TRANSVAGINAL [place] [address] Patient Name: ERIKA WILLSON MR #: [id number] : 1980 Age/Sex: 36/F Req #: [id number] [facility] Physician: COLT MARISCAL MD Ordered by: BONG LUJAN MD Report #: [id number] Location: MED/SURG3 Room/Bed: [facility] _ Procedure: [id number] US/US TRANSVAGINAL Exam Date: 01/10/17 Exam Time: 1527 REPORT STATUS: Signed PROCEDURE: Transabdominal and transvaginal ultrasound imaging of the pelvis was performed. COMPARISON: Please refer to the full dictated report listed under accession # [id number] INDICATIONS: Possible ovarian torsion FINDINGS: UTERUS: The uterus is absent. OVARIES/ADNEXA: Right ovary measures 2.8 x 1.8 x 2.1 cm with a simple cyst measuring 8 mm. Left ovary measures 2.5 x 2.1 x 2.3 cm. There is Doppler blood flow to both ovaries. PELVIS: No free fluid. IMPRESSION: No sonographic abnormality. Karthik Neal D.O. Dictated by: Karthik Neal D.O. on 01/11/2017 at 13:40 Electronically approved by: Karthik Neal D.O. on 01/11/2017 at 13:40 Dictated By: KARTHIK NEAL DO 1340 Transcribed By: NADINE on 01/11/17 1340 COPY TO: BONG LUJAN MD
--- OUTSIDE RECORDS SUMMARY | 2017-05-28 13:21 | XMS REPORT | Summary of Care ---
Author Author MELISSA TORRES M.D. Organization Unknown Address [facility] Phone Unavailable Care Team Providers Care Diesel Technology Instructor Name Role Phone MELISSA TORRES M.D. 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) Status: Active Allergic rhinitis (477.9, J30.9) Status: Active Asthma (493.90, J45.909) Status: Active Chronic headaches (784.0, R51) Status: Active Medications Name Dates Details Ventolin HFA AERS Active Zyrtec TABS * Refills: 0 Active Symbicort 160-4.5 MCG/ACT Inhalation Aerosol * Refills: 0 Active Omeprazole TBEC * Refills: 0 Active Amitriptyline HCl TABS * Refills: 0 Active Minocycline HCl CAPS * Refills: 0 Active RifAMPin CAPS * Refills: 0 Active Fluticasone Propionate SUSP * Refills: 0 Active Spiriva HandiHaler CAPS * Refills: 0 Active ProAir HFA AERS * Refills: 0 Active Allergies and Adverse Reactions Name Dates Details Aspirin TABS (Allergy) Status: Active Past Medical History Name Dates Details History of asthma (V12.69, Z87.09) Status: Resolved History of Depressive disorder (311, F32.9) Status: Resolved History of gastritis (V12.79, Z87.19) Status: Resolved History of migraine headaches (V12.49, Z86.69) Status: Resolved Procedures Procedure Dates Details History of Section Completed History of Hysterectomy Completed Immunization Name Dates Details Immunizations not documented Family History Name Dates Details Family history of Allergy (995.3, T78.40XA) Comments: Family History Status: Active Family history of asthma (V17.5, Z82.5) Comments: Family History Status: Active Social History Name Dates Details - Status: Name Dates Details Never smoker Vital Signs Date Test Result Details [id number] BP Systolic 111 mm[Hg] Status: BP Diastolic 84 mm[Hg] Status: Height 61 in Status: Weight 187 lb Status: Body Mass Index Calculated 35.33 kg/m2 Status: Body Surface Area Calculated 1.84 m2 Status: Heart Rate 89 /min Status: Results Date Description Value Details Results not documented Plan of Care Name Dates Details Planned Observations Planned Goals not documented Interventions Provided Plan* 1. Obtain CT scan sinuses. Will need to continue the nasal spray. Fu after scanning Instructions Name Dates Details Instructions not documented Encounters Appointment; MELISSA TORRES M.D. Encounter Diagnosis: Problem not documented On: 05-May-2016 9:45 Appointment; MELISSA TORRES M.D. Encounter Diagnosis: Problem not documented On: 20-Nov-2016 13:30 Appointment; MELISSA TORRES M.D. Encounter Diagnosis: Problem not documented On: 24-Nov-2016 9:45 Appointment; ARACELY BECK M.D. Encounter Diagnosis: Problem not documented On: 22-Dec-2016 10:00 Appointment; MELISSA TORRES M.D. Encounter Diagnosis: Problem not documented On: 24-May-2017 11:00
--- OUTSIDE RECORDS SUMMARY | 2017-05-28 13:21 | XMS REPORT | Continuity of Care Document ---
Author Author [facility] Organization [facility] Address [address] [place] [address] Phone Unavailable Care Team Providers Care Beef Grader Name Role Phone CAESAR BHAKTA DO PCP Insurance Providers Guarantor Kylah Rose Address [address] [place] [address] Email [email or web address] Payer [employer] Policy Number [id number] Subscriber's Name Kylah Rose Relationship 18 Self / Same As Patient Effective Date 17 Advance Directives Directive Response Recorded Date/Time Does the patient have an advance directive? No 04/26/17 9:19pm If yes, is advance directive on file with [facility]? No 04/26/17 9:19pm If not on file with [facility] will patient provide a copy? No 04/26/17 9:19pm Do you have a Directive to Physician? No 04/26/17 12:21pm Do you have a Medical Power of Railcar Foreman? No 04/26/17 12:21pm Do you have an out of hospital Do Not Resuscitate Order? No 04/26/17 12:21pm Do you have any special needs we should be aware of? No 04/26/17 12:21pm Do you have a support person here with you today? Yes 04/26/17 12:21pm Did patient receive Notice of Privacy Practices? Yes 04/26/17 12:21pm Did patient receive patient rights and responsibilities? Yes 04/26/17 12:21pm Problems Medical Problem Onset Date Status Asthma exacerbation 05/21/2014 Acute Asthma with acute exacerbation in adult Unknown Erosive esophagitis 05/26/2014 Acute Laryngospasm 01/19/2014 Acute Medications Current Home Medications Medication Dose Units Route Directions Days Qty Instructions Start Date Acetaminophen With Codeine (Tylenol With Codeine #3 Tablet) 1 Each Tablet 300 Mg Oral As Needed Albuterol Sulfate 0.63 Mg/3 Ml Vial.neb 1 Vial Nebullizer As Needed for Shortness Of Breath Albuterol Sulfate (Proair Hfa Inhaler*) 8.5 Gm Inh 1 Inh Inhalation Budesonide/Formoterol Fumarate (Symbicort 160-4.5 Mcg Inhaler) 10.2 Gm Hfa.aer.ad 1 Inh Inhalation Twice A Day as needed for Shortness Of Breath Cetirizine Hcl (Zyrtec) 10 Mg Capsule 1 Mg Oral Daily THERAPEUTICALLY SUBSTITUTED WITH LORATIDINE 10MG Famotidine (Pepcid) 20 Mg Tablet 20 Mg Oral Twice A Day 60 Tab Gabapentin 100 Mg Capsule Montelukast Sodium (Singulair) 10 Mg Tablet 10 Mg Oral Daily Omeprazole 40 Mg Capsule.dr 40 Mg Oral Twice A Day Sucralfate (Carafate) 1 Gm/10 Ml Oral.susp 1 Gm Oral Daily Sumatriptan Succinate (Imitrex) 25 Mg Tablet Topiramate (Topamax) 25 Mg Tablet Tramadol Hcl (Ultram 50MG*) 50 Mg Tab 50 Mg Oral Daily Past Home Medications Medication Directions Ordered Status Acetaminophen/Codeine Phosphate (Tylenol # 3*) 1 Ea Tab, 1 Tab Oral Twice A Day Discontinued Albuterol Sulfate (Proair Hfa Inhaler*) 8.5 Gm Inh, 1 Inh Inhalation Daily as needed for Shortness Of Breath Discontinued Alprazolam (Xanax) 0.25 Mg Tablet, 0.5 Mg Oral Daily' Discontinued Benzonatate (Tessalon Perle) 100 Mg Capsule, Oral Four Times Daily as needed for Cough Discontinued Benzonatate (Tessalon Perle) 100 Mg Capsule, 1 Tab Oral Daily Discontinued Budesonide 0.5 Mg/2 Ml Ampul.neb, 2 Ml Nebullizer As Needed for Shortness Of Breath Discontinued Cefdinir (Omnicef) 300 Mg Capsule, 300 Mg Oral Twice A Day Discontinued Ciprofloxacin Hcl (Cipro) 500 Mg Tablet, 1 Tab Oral Daily Discontinued Doxycycline Hyclate (Morgidox) 100 Mg Capsule, 1 Tab Oral Daily Discontinued Famotidine (Pepcid) 20 Mg Tablet, 20 Mg Oral Twice A Day Discontinued Hydrocodone Bit/Acetaminophen (Aydlett 7.5-325 Tablet) 1 Each Tablet, 1 Ea Oral As Needed Discontinued Ketorolac Tromethamine (Toradol) 10 Mg Tablet, Mg Oral Every 6 Hours as needed for Pain Discontinued Levaquin , Discontinued Linzess , 290 Mcg Oral Use As Directed Discontinued Loratadine 10 Mg Tablet, 10 Mg Oral Daily as needed for Itching Discontinued Lorazepam 1 Mg Tablet, 1 Mg Oral Three Times A Day Discontinued Methylprednisolone (Medrol Dose Pack) 4 Mg/Dose Pack Tab, Discontinued Naproxen (Naprosyn) 500 Mg Tablet, 500 Mg Oral Twice A Day Discontinued Pantoprazole Sodium (Protonix) 40 Mg Tablet.dr, 40 Mg Oral Daily Discontinued Pantoprazole Sodium (Protonix) 40 Mg Tablet.dr, 1 Tab Oral Daily Discontinued Polyethylene Glycol 3350 (Miralax) 17 Gm Powd.pack, 1 Pkt Oral Daily Discontinued Prednisone , Discontinued Salmeterol Xinafoate/Fluticasone (Advair 500/50*) 1 Ea Aerp, 1 Puff Inhalation Daily Discontinued Temazepam (Restoril) 15 Mg Capsule, 30 Mg Oral Bedtime as needed for Anxiety Discontinued Social History Social History Problem Response Recorded Date/Time Onset Date Status Hx Psychiatric Problems No 04/26/2017 9:19pm Not Applicable Not Applicable Hx Eating Disorder No 04/26/2017 9:19pm Not Applicable Not Applicable Hx Substance Use Disorder No 04/26/2017 9:19pm Not Applicable Not Applicable Hx Depression No 04/26/2017 9:19pm Not Applicable Not Applicable Hx Alcohol Use No 04/26/2017 9:19pm Not Applicable Not Applicable Hx Substance Use Treatment No 04/26/2017 9:19pm Not Applicable Not Applicable Hx Physical Abuse No 04/26/2017 9:19pm Not Applicable Not Applicable Hospital Discharge Instructions No hospital discharge instruction information available. Plan of Care Discharge Date 05/04/17 7:18pm Disposition TRANS TO OTHER [facility] Prescriptions See Medication Section Functional Status Query Response Date Recorded Assistive Devices None April 26, 2017 9:26pm Ambulation Ability Independent April 26, 2017 9:26pm Toileting Ability Independent May 03, 2017 6:15pm Allergies, Adverse Reactions, Alerts Allergen Type Severity Reaction Status Last Updated Pork/Porcine Containing Products Allergy Intermediate HIVES Active Fish Containing Products Allergy Severe ANAPHYLAXIS Active 02/07/15 Aspirin Allergy Unknown Active 01/10/17 Ceftriaxone Allergy Unknown Active 04/29/17 reid Allergy Severe ANAPHYLAXIS Active 02/07/15 sausage Allergy Unknown Active 04/28/17 sea food Allergy Unknown Active 04/29/17 Immunizations No immunization information available. Vital Signs Acute Vital Signs Vital Response Date/Time Temperature (Fahrenheit) 97.4 degrees F (97.6 - 99.5) 05/04/2017 4:24pm Pulse Pulse Rate (adult) 116 bpm (60 - 90) 05/04/2017 4:24pm Respiratory Rate 19 bpm (12 - 24) 05/04/2017 4:24pm Blood Pressure 122/68 mm Hg 05/04/2017 4:24pm Height 5 ft 1 in 04/26/2017 12:10pm Weight 194.04 lb 04/30/2017 7:58am Body Mass Index 36.7 kg/m^2 04/30/2017 7:58am Results Laboratory Results Test Name Result Units Flags Reference Collection Date/Time Result Date/ Time Comments Urine Color YELLOW YELLOW 01/10/2017 2:05pm 01/10/2017 2:40pm Urine Clarity CLEAR CLEAR 01/10/2017 2:05pm 01/10/2017 2:40pm Urine Specific [place] 1.010 1.010-1.025 01/10/2017 2:05pm 2016 2:40pm Urine pH 8 H 5 - 7 01/10/2017 2:05pm 01/10/2017 2:40pm Urine Leukocyte Esterase NEGATIVE NEGATIVE 01/10/2017 2:05pm 2016 2:40pm Urine Nitrite NEGATIVE NEGATIVE 01/10/2017 2:05pm 01/10/2017 2:40pm Urine Protein TRACE H NEGATIVE 01/10/2017 2:05pm 01/10/2017 2:40pm Urine Glucose (UA) NEGATIVE NEGATIVE 01/10/2017 2:05pm 01/10/2017 2: 40pm Urine Ketones NEGATIVE NEGATIVE 01/10/2017 2:05pm 01/10/2017 2:40pm Urine Urobilinogen 0.2 mg/dL 0.2 - 1 01/10/2017 2:05pm 01/10/2017 2: 40pm Urine Bilirubin NEGATIVE NEGATIVE 01/10/2017 2:05pm 01/10/2017 2: 40pm Urine Blood TRACE H NEGATIVE 01/10/2017 2:05pm 01/10/2017 2:40pm Urine WBC NONE /HPF 0-5 01/10/2017 2:05pm 01/10/2017 2:50pm Urine RBC NONE /HPF 0-5 01/10/2017 2:05pm 01/10/2017 2:50pm Urine Bacteria NONE /HPF NONE 01/10/2017 2:05pm 01/10/2017 2:50pm Urine Epithelial Cells FEW /LPF NONE 01/10/2017 2:05pm 01/10/2017 2: 50pm Urine Test NEGATIVE NEGATIVE 01/10/2017 2:05pm 01/10/2017 2 :41pm Amylase Level 90 U/L 25-125 01/10/2017 2:05pm 01/10/2017 2:56pm Lipase 31 U/L 8-78 01/10/2017 2:05pm 01/10/2017 2:56pm White Blood Count 9.03 x10e3/uL 4.8-10.8 05/02/2017 6:10am 05/02/2017 6 :50am Red Blood Count 4.41 x10e6/uL 3.6-5.1 05/02/2017 6:10am 05/02/2017 6: 50am Hemoglobin 12.6 g/dL 12.0-16.0 05/02/2017 6:10am 05/02/2017 6:50am Hematocrit 37.4 % 34.2-44.1 05/02/2017 6:10am 05/02/2017 6:50am Mean Corpuscular Volume 84.8 fL 81-99 05/02/2017 6:10am 05/02/2017 6: 50am Mean Corpuscular Hemoglobin 28.6 pg 28-32 05/02/2017 6:05/02/2017 6:50am Mean Corpuscular Hemoglobin Concent 33.7 g/dL 31-35 05/02/2017 6:05/02/2017 6:50am Red Cell Distribution Width 12.3 % 11.7-14.4 05/02/2017 6:2017 6:50am Platelet Count 179 x10e3/uL 140-360 05/02/2017 6:05/02/2017 6: 50am Neutrophils (%) (Auto) 75.5 % 38.7-80.0 05/02/2017 6:05/02/2017 6: 50am Lymphocytes (%) (Auto) 6.5 % L 18.0-39.1 05/02/2017 6:05/02/2017 6: 50am Monocytes (%) (Auto) 7.3 % 4.4-11.3 05/02/2017 6:05/02/2017 6: 50am Eosinophils (%) (Auto) 0.0 % 0.0-6.0 05/02/2017 6:05/02/2017 6: 50am Basophils (%) (Auto) 1.0 % 0.0-1.0 05/02/2017 6:05/02/2017 6:50am IM GRANULOCYTES % 9.7 % H 0.0-1.0 05/02/2017 6:05/02/2017 6:50am Neutrophils # (Auto) 6.8 2.1-6.9 05/02/2017 6:05/02/2017 6:50am Lymphocytes # (Auto) 0.6 L 1.0-3.2 05/02/2017 6:05/02/2017 6: 50am Monocytes # (Auto) 0.7 0.2-0.8 05/02/2017 6:05/02/2017 6:50am Eosinophils # (Auto) 0.0 0.0-0.4 05/02/2017 6:05/02/2017 6:50am Basophils # (Auto) 0.1 0.0-0.1 05/02/2017 6:05/02/2017 6:50am Absolute Immature Granulocyte (auto 0.88 x10e3/uL H 0-0.1 05/02/2017 6: 05/02/2017 6:50am Differential Total Cells Counted 100 05/02/2017 6:05/02/2017 11:09am Neutrophils % (Manual) 80 % H 40-74 05/02/2017 6:05/02/2017 11: 09am Lymphocytes % (Manual) 14 % L 19-48 05/02/2017 6:05/02/2017 11: 09am Monocytes % (Manual) 6 % 3.4-9.0 05/02/2017 6:05/02/2017 11:09am Platelet Estimate ADEQUATE 05/02/2017 6:05/02/2017 11:09am Platelet Morphology Comment NORMAL 05/02/2017 6:05/02/2017 11: 09am Red Cell Morphology Comment NORMAL 05/02/2017 6:05/02/2017 11: 09am Sodium Level 138 mmol/L 136-145 05/02/2017 6:05/02/2017 7:20am Potassium Level 3.7 mmol/L 3.5-5.1 05/02/2017 6:05/02/2017 7:20am Chloride Level 102 mmol/L 98-107 05/02/2017 6:05/02/2017 7:20am Influenza Virus Types A,B Antigen NEGATIVE NEGATIVE 04/26/2017 2:14pm 04/26/2017 2:59pm Carbon Dioxide Level 26 mmol/L 05/02/2017 6:05/02/2017 7: 20am Anion Gap 13.7 mmol/L 8-05/02/2017 6:05/02/2017 7:20am Blood Urea Nitrogen 14 mg/dL 10-2805/02/2017 6:05/02/2017 7:20am Creatinine 0.69 mg/dL 0.57-1.11 05/02/2017 6:05/02/2017 7:20am BUN/Creatinine Ratio 20 6-05/02/2017 6:05/02/2017 7:20am Estimat Glomerular Filtration Rate > 60 ML/MIN 60- 05/02/2017 6: 7:20am Ranges were taken from the National Kidney Disease Education Program and the National Kidney Foundation literature. Reference ranges: 60 or greater: Normal 16-59 (for 3 consecutive months): Chronic kidney disease 15 or less: Kidney failure Glucose Level 117 mg/dL 74-118 05/02/2017 6:05/02/2017 7:20am Calcium Level 9.2 mg/dL 8.4-10.2 05/02/2017 6:05/02/2017 7:20am Total Bilirubin 0.3 mg/dL 0.2-1.2 05/02/2017 6:05/02/2017 7:20am Aspartate Amino Transf (AST/SGOT) 31 IU/L 5-34 05/02/2017 6:2017 7:20am Alanine Aminotransferase (ALT/SGPT) 41 IU/L 0-55 05/02/2017 6: 7:20am Total Protein 6.5 g/dL 6.5-8.1 05/02/2017 6:05/02/2017 7:20am Albumin 3.3 g/dL L 3.5-5.0 05/02/2017 6:05/02/2017 7:20am Globulin 3.2 g/dL 2.3-3.5 05/02/2017 6:05/02/2017 7:20am Albumin/Globulin Ratio 1.0 0.8-2.0 05/02/2017 6:05/02/2017 7: 20am Alkaline Phosphatase 70 IU/L 40-150 05/02/2017 6:05/02/2017 7: 20am Creatine Kinase 36 IU/L 29-168 04/27/2017 5:57am 04/27/2017 6:55am Creatine Kinase MB 0.50 ng/mL 0.00-5.00 04/27/2017 5:57am 04/27/2017 7: 39am Troponin I 0.001 ng/mL 0-0.300 04/27/2017 5:57am 04/27/2017 7:39am Vancomycin Level Trough 4.0 ug/mL L 5.0-10.0 05/02/2017 1:50pm 2017 2:21pm Dermatophagoides pteronyssinus IgE 13.40 kU/L H Class IV 04/27/2017 11: 05/01/2017 11:12pm Miscellaneous Allergen ASM Class Comment . 04/27/2017 11:2017 11:12pm Levels of Specific IgE Class Description of Class ----- < 0.10 0 Negative 0.10 - 0.31 0/I Equivocal/Low 0.32 - 0.55 I Low 0.56 - 1.40 II Moderate 1.41 - 3.90 III High 3.91 - 19.00 IV Very High 19.01 - 100.00 V Very High >100.00 Very High Edgard Grass Allergen IgE Antibody <0.10 kU/L Class 0 04/27/2017 11: 05/01/2017 11:12pm Efraín Grass Allergen IgE Ab <0.10 kU/L Class 0 04/27/2017 11: 11:12pm Bahia Grass Allergen IgE Antibody <0.10 kU/L Class 0 04/27/2017 11:05/01/2017 11:12pm Somali Cockroach Allergen 0.26 kU/L H Class 0/I 04/27/2017 11: 11:12pm Penicillium chrysogen/notatum IgE <0.10 kU/L Class 0 04/27/2017 11:05/01/2017 11:12pm Aspergillus fumigatus Allergen IgE <0.10 kU/L Class 0 04/27/2017 11: 05/01/2017 11:12pm Mucor racemosus Allergen IgE Ab <0.10 kU/L Class 0 04/27/2017 11:05/01/2017 11:12pm Stemphylium herbarum Allergen IgE <0.10 kU/L Class 0 04/27/2017 11:05/01/2017 11:12pm Somali Elm Tree Allergen IgE Ab <0.10 kU/L Class 0 04/27/2017 11:05/01/2017 11:12pm Maple ([place]) Allergen IgE Ab <0.10 kU/L Class 0 04/27/2017 11:25am 05/01/2017 11:12pm White [place] Tree Allergen IgE Ab <0.10 kU/L Class 0 04/27/2017 11: 25am 05/01/2017 11:12pm Coram Tree Allergen IgE Antibody <0.10 kU/L Class 0 04/27/2017 11: 25am 05/01/2017 11:12pm White [place] Allergen <0.10 kU/L Class 0 04/27/2017 11:25am 2017 11:12pm Sweet Gum Tree Allergen IgE Antibod <0.10 kU/L Class 0 04/27/2017 11: 25am 05/01/2017 11:12pm Mountain [place] Tree Allergen IgE Ab 0.14 kU/L H Class 0/I 04/27/2017 11: 25am 05/01/2017 11:12pm Mugwort IgE Allergen 0.55 kU/L H Class I 04/27/2017 11:25am 05/01/2017 11:12pm Sami Plantain Allergen IgE Ab <0.10 kU/L Class 0 04/27/2017 11:25am 05/01/2017 11:12pm Sheep [place]ena Allergen IgE Antibody <0.10 kU/L Class 0 04/27/2017 11: 25am 05/01/2017 11:12pm Nettle Allergen IgE Antibody <0.10 kU/L Class 0 04/27/2017 11:25am 11:12pm Performed at: [facility] [employer] [id number] Telecommunication Systems Designer: Hudson Fritz MD, Phone: [phone] Tnnta-3-Rfcrudzskaw 147 mg/dL 90-200 04/29/2017 5:47am 05/01/2017 11: 11pm Performed at: [facility] [employer] [id number] Telecommunication Systems Designer: FELICIA Farrar MD, Phone: [phone] Immunoglobulin E 195 IU/mL H 0-100 04/28/2017 6:01am 05/04/2017 4:41am Performed at: [facility] [employer] [id number] Telecommunication Systems Designer: Hudson Fritz MD, Phone: [phone] Immunoglobulin A 61 mg/dL L 87-352 04/28/2017 6:04/30/2017 5:55am Alternaria alternata IgE Allergen <0.10 kU/L Class 0 04/27/2017 11:25am 05/01/2017 11:12pm Cat Dander IgE Allergen 0.11 kU/L H Class 0/I 04/27/2017 11:25am 2017 11:12pm Cladosporium herbarum IgE Allergen <0.10 kU/L Class 0 04/27/2017 11: 25am 05/01/2017 11:12pm Common Ragweed Allergen IgE Ab <0.10 kU/L Class 0 04/27/2017 11:25am 11:12pm Dermatophagoides farinae IgE Allerg 12.10 kU/L H Class IV 04/27/2017 11: 25am 05/01/2017 11:12pm Dog Dander IgE Allergen <0.10 kU/L Class 0 04/27/2017 11:25am 2017 11:12pm [place] Tree Allergen IgE Antibody <0.10 kU/L Class 0 04/27/2017 11:25am 11:12pm Rough Pigweed Allergen <0.10 kU/L Class 0 04/27/2017 11:25am 2017 11:12pm B[place] Grass Allergen IgE Antibody <0.10 kU/L Class 0 04/27/2017 11: 25am 05/01/2017 11:12pm Immunoglobulin G 593 mg/dL L 700-1600 04/28/2017 6:04/30/2017 5: 55am Immunoglobulin M 90 mg/dL 26-217 04/28/2017 6:am 04/30/2017 5:55am Performed at: - [facility] [id number] Telecommunication Systems Designer: Eliceo Weeks MD, Phone: [phone] Aspergillus fumigatus Antibody Negative Neg:<1:1 04/27/2017 11:25am 05/01/2017 11:11pm Aspergillus flavus Antibody Negative Neg:<1:1 04/27/2017 11:25am 11:11pm Aspergillus niger Antibody Negative Neg:<1:1 04/27/2017 11:25am 05/01 11:12pm Performed at: - [facility] [id number] Telecommunication Systems Designer: Hudson Fritz MD, Phone: [phone] Microbiology Results Procedure Source Organism/Result Collection Date/Time Result Date/Time Result Status Urine Culture Urine,Clean Catch ENTEROCOCCUS FAECALIS 01/10/2017 2:05pm 4:07pm Final Bronchial Washings Culture Bronchial Washings, Right Upper Lobe STAPHYLOCOCCUS AUREUS-MRSA 04/30/2017 2:35pm 05/02/2017 8:30am Final Bronchial Washings Culture Bronchial Washings, Left Upper Lobe STAPHYLOCOCCUS AUREUS-MRSA 04/30/2017 2:35pm 05/02/2017 8:31am Final Procedures Procedure Status Date Provider(s) Bronchoscopy with biopsy Completed 04/30/17 COLT MARISCAL MD Bronchoscopy with biopsy Completed 04/30/17 COLT MARISCAL MD Limited Doppler ultrasound of vessels of pelvis Active 01/10/17 BONG LUJAN MD US transvaginal Active 01/10/17 BONG LUJAN MD X-ray of chest, two views Active 04/26/[address] maxillofacial area wo contrast Active 04/27/17 COLT MARISCAL MD X-ray of chest, two views Active 05/03/17 COLT MARISCAL MD Encounters Encounter Location Arrival/Admit Date Discharge/Depart Date Attending Provider Discharged [facility]patient [facility] 04/27/17 9:10am 05/04/17 7:18pm COLT MARISCAL MD Discharged Inpatient (obs) [facility] 01/10/17 4:56pm 02/19 2:45pm COLT MARISCAL MD
[2017-05-28] MEDS ORDERED: MAGNESIUM SULF 1GRAM/DEXTROSE 100 ML IV ONE (14:45)
[2017-05-28] MEDS ORDERED: LEVOFLOXACIN 750MG/D5W 150ML 150 ML IV ONE (14:45)
[2017-05-28] MEDS ORDERED: ALBUTEROL/IPRATROPIUM 3 ML NEB NEB ONE (14:45)
[2017-05-28] MEDS ORDERED: DEXAMETHASONE SOD PHOS 10 MG/1 ML VIAL IV ONE (14:45)
[2017-05-28] MEDS ORDERED: LEVOFLOXACIN 500MG/D5W 100ML IV SCH (15:00)
[2017-05-28] MEDS ORDERED: SODIUM CHLORIDE FLUSH 10 ML SYR INJ PRN (15:00)
[2017-05-28] MEDS ORDERED: ASPIRIN 81 MG CHEW TAB PO ONE (15:00)
--- NOTE | 2017-05-28 15:04 | Diagnostic Imaging Report ---
PROCEDURE: Frontal and lateral views of the chest. COMPARISON: 05/03/17 INDICATIONS: COUGH, FEVER FINDINGS: Lines/tubes: None. Lungs: The lungs are well inflated and clear. There is no evidence of pneumonia or pulmonary edema. Pleura: There is no pleural effusion or pneumothorax. Heart and mediastinum: The heart and the mediastinum are normal. Bones: No acute bony abnormality. IMPRESSION: 1. No acute cardiopulmonary disease. Dictated by: Ronald Herrera M.D. on 05/28/2017 at 15:03 Electronically approved by: Ronald Herrera M.D. on 05/28/2017 at 15:03
[2017-05-28 15:09] LABS: BASOPHILS # (AUTO) 0.1 (0.0-0.1); BASOPHILS % 0.8 % (0.0-1.0); EOSINOPHILS # (AUTO) 0.1 (0.0-0.4); EOSINOPHILS % 1.2 % (0.0-6.0); HEMATOCRIT 41.4 % (34.2-44.1); HEMOGLOBIN 14.2 g/dL (12.0-16.0); LYMPHOCYTES # (AUTO) 1.6 (1.0-3.2); LYMPHOCYTES % 21.3 % (18.0-39.1); MEAN CORPUSCULAR HGB CONC 34.3 g/dL (31-35); MEAN CORPUSCULAR VOLUME 81.7 fL (81-99); MONOCYTES # (AUTO) 0.3 (0.2-0.8); MONOCYTES % 3.8 % (4.4-11.3); NEUTROPHILS # (AUTO) 5.1 (2.1-6.9); NEUTROPHILS % 69.8 % (38.7-80.0); PLATELET COUNT 261 x10e3/uL (140-360); RED BLOOD COUNT 5.07 x10e6/uL (3.6-5.1); RED CELL DISTRIBUTION WIDTH 12.8 % (11.7-14.4)
[2017-05-28] MEDS ORDERED: KETOROLAC TROMETHAMINE 30 MG/ML VIAL IV STA (15:16)
--- OUTSIDE RECORDS SUMMARY | 2017-05-28 15:16 | XMS REPORT | Summary of Care ---
Author Author Carie Pichardo M.A. Organization Unknown Address [facility] Phone Unavailable Care Team Providers Care Commercial Lines Manager Name Role Phone Carie Pichardo M.A. Unavailable Unavailable LIVIA DO CAESAR ANGELO Unavailable Unavailable Unavailable Unavailable Functional Status [...] smoker Vital Signs Date Test Result Details [id number] BP Systolic 111 mm[Hg] Status: BP Diastolic 84 mm[Hg] Status: Height 61 in Status: Weight 187 lb Status: Body Mass Index Calculated 35.33 kg/m2 Status: Body Surface Area Calculated 1.84 m2 Status: Heart Rate 89 /min Status: Results Date Description Value Details Results not documented Plan of Care Name Dates Details Planned Observations Planned Goals not documented Planned Encounters Appointment; MELISSA TORRES M.D. On: 08-Jun-2017 10:30 Instructions Name Dates Details Instructions not documented [...]
[2017-05-28 15:27] LABS: ALANINE AMINOTRANSFERASE 24 IU/L (0-55); ALBUMIN 3.8 g/dL (3.5-5.0); ALKALINE PHOSPHATASE 86 IU/L (40-150); ANION GAP 14.6 mmol/L (8-16); BLOOD UREA NITROGEN 12 mg/dL (7-26); BUN/CREATININE RATIO 15 (6-25); CALCIUM 9.7 mg/dL (8.4-10.2); CARBON DIOXIDE 25 mmol/L (22-29); CHLORIDE 105 mmol/L (98-107); EST GLOMERULAR FILTRATION RATE > 60 ML/MIN (60-); GLUCOSE 152 mg/dL (74-118); POTASSIUM 3.6 mmol/L (3.5-5.1); SODIUM 141 mmol/L (136-145)
[2017-05-28 15:29] LABS: BILIRUBIN,URINE NEGATIVE (NEGATIVE); CLARITY,URINE SL CLOUDY (CLEAR); COLOR,URINE YELLOW (YELLOW); KETONES,URINE NEGATIVE (NEGATIVE); LEUKOCYTE ESTERASE ,URINE NEGATIVE (NEGATIVE); NITRITE,URINE NEGATIVE (NEGATIVE); PROTEIN,URINE DIPSTICK TRACE (NEGATIVE); URINE UROBILINOGEN 0.2 mg/dL (0.2 - 1)
[2017-05-28 15:37] LABS: AMORPHOUS SEDIMENT,URINE MODERATE (FEW); EPITHELIAL CELLS,URINE MODERATE /LPF; RBC,URINE 0-5 /HPF (0-5); YEAST,URINE MODERATE
[2017-05-28] MEDS: ALBUTEROL/IPRATROPIUM 3 ML NEB NEB SCH ×3 (16:00→23:00)
[2017-05-28] MEDS ORDERED: HYDROCODONE/APAP 7.5MG-325MG 1 EA TAB PO PRN (17:00)
[2017-05-28] MEDS ORDERED: HYDROCODONE/CHLORPHENIRAMINE 5 ML LIQCR PO ONE (17:00)
[2017-05-28 17:37] LABS: EOSINOPHILS % (MANUAL) 1 % (0-7); LYMPHOCYTES % (MANUAL) 19 % (19-48); MONOCYTES % (MANUAL) 3 % (3.4-9.0); NEUTROPHILS % (MANUAL) 73 % (40-74); PLATELET ESTIMATE ADEQUATE; PLATELET MORPHOLOGY COMMENT NORMAL; RBC MORPHOLOGY COMMENT NORMAL
[2017-05-28 18:28] VITALS: BP 137/88
[2017-05-28] MEDS ORDERED: SUMATRIPTAN SUCCINATE 25 MG TAB PO PRN (18:45)
[2017-05-28 19:48] VITALS: BP 107/70
[2017-05-28 20:00] VITALS: BP 107/70
[2017-05-28] MEDS: METHYLPREDNISOLONE SOD SUCC 125 MG/2ML VIAL IV SCH (20:17)
[2017-05-28] MEDS: ONDANSETRON HCL INJ 2 MG/ML VIAL IV PRN (20:17)
[2017-05-28] MEDS: HYDROMORPHONE 1MG/1ML INJ IV PRN (20:18)
[2017-05-28] MEDS ORDERED: METHYLPREDNISOLONE SOD SUCC 125 MG/2ML VIAL IV SCH (22:00)
[2017-05-29] VITALS (7 sets, daily range): BP systolic 108–119; BP diastolic 53–66
[2017-05-29] MEDS: HYDROMORPHONE 1MG/1ML INJ IV PRN ×3 (00:20→08:35)
[2017-05-29] MEDS: ONDANSETRON HCL INJ 2 MG/ML VIAL IV PRN ×3 (00:20→08:41)
[2017-05-29] MEDS: ALBUTEROL/IPRATROPIUM 3 ML NEB NEB SCH ×4 (02:00→11:00)
[2017-05-29] MEDS ORDERED: GABAPENTIN300 MG PO (02:23)
[2017-05-29] MEDS ORDERED: SPIRIVA18 MCG INH (02:28)
[2017-05-29] MEDS ORDERED: RIFAMPIN300 MG PO (02:30)
[2017-05-29] MEDS ORDERED: MINOCYCLINE HC100 MG PO (02:40)
[2017-05-29] MEDS ORDERED: ESTRADIOL1 MG PO (02:41)
[2017-05-29] MEDS ORDERED: LORAZEPAM0.5 MG PO (02:45)
[2017-05-29] MEDS ORDERED: AMBIEN10 MG PO (02:47)
[2017-05-29 07:33] LABS: BASOPHILS # (AUTO) 0.1 (0.0-0.1); BASOPHILS % 0.7 % (0.0-1.0); EOSINOPHILS % 0.4 % (0.0-6.0); HEMATOCRIT 37.3 % (34.2-44.1); HEMOGLOBIN 12.3 g/dL (12.0-16.0); LYMPHOCYTES % 28.2 % (18.0-39.1); MEAN CORPUSCULAR HEMOGLOBIN 27.5 pg (28-32); MEAN CORPUSCULAR VOLUME 83.4 fL (81-99); MONOCYTES # (AUTO) 0.7 (0.2-0.8); MONOCYTES % 10.1 % (4.4-11.3); NEUTROPHILS # (AUTO) 4.2 (2.1-6.9); NEUTROPHILS % 57.9 % (38.7-80.0); PLATELET COUNT 236 x10e3/uL (140-360); RED BLOOD COUNT 4.47 x10e6/uL (3.6-5.1); RED CELL DISTRIBUTION WIDTH 12.5 % (11.7-14.4)
[2017-05-29 08:08] LABS: ANION GAP 13.8 mmol/L (8-16); BLOOD UREA NITROGEN 11 mg/dL (7-26); BUN/CREATININE RATIO 15 (6-25); CALCIUM 9.3 mg/dL (8.4-10.2); CARBON DIOXIDE 26 mmol/L (22-29); CHLORIDE 105 mmol/L (98-107); CREATINE KINASE 44 IU/L (29-168); CREATININE, SERUM 0.74 mg/dL (0.57-1.11); EST GLOMERULAR FILTRATION RATE > 60 ML/MIN (60-); GLUCOSE 95 mg/dL (74-118); POTASSIUM 3.8 mmol/L (3.5-5.1); SODIUM 141 mmol/L (136-145)
[2017-05-29] MEDS: MONTELUKAST SODIUM 10 MG TAB PO SCH (08:12)
[2017-05-29] MEDS: METHYLPREDNISOLONE SOD SUCC 125 MG/2ML VIAL IV SCH ×2 (08:12→21:38)
[2017-05-29] MEDS ORDERED: FAMOTIDINE 20 MG TAB PO SCH ×2 (09:00→16:30)
[2017-05-29] MEDS: ESTRADIOL 1 MG TAB PO SCH (09:35)
[2017-05-29] MEDS: TOPIRAMATE 25 MG TAB PO SCH ×2 (09:36→16:45)
[2017-05-29] MEDS: GABAPENTIN 300 MG CAP PO SCH ×2 (09:36→16:45)
[2017-05-29] MEDS: PANTOPRAZOLE SOD 40 MG TABEC PO SCH ×2 (09:36→16:45)
[2017-05-29] MEDS: GUAIFENESIN 600MG/DEXTROMETHORPHAN 30MG TABSR PO SCH ×3 (09:36→18:18)
[2017-05-29] MEDS: LORAZEPAM INJ 2 MG/ML VIAL IV PRN ×2 (09:43→18:22)
[2017-05-29] MEDS ORDERED: HYDROCODONE/APAP 7.5MG-325MG 1 EA TAB PO PRN (10:00)
[2017-05-29 10:23] LABS: BAND NEUTROPHILS % (MANUAL) 3 %; LYMPHOCYTES % (MANUAL) 26 % (19-48); MONOCYTES % (MANUAL) 6 % (3.4-9.0); NEUTROPHILS % (MANUAL) 65 % (40-74); PLATELET ESTIMATE ADEQUATE; PLATELET MORPHOLOGY COMMENT NORMAL; RBC MORPHOLOGY COMMENT NORMAL
[2017-05-29] MEDS ORDERED: LORAZEPAM 0.5 MG TAB PO SCH (12:00)
[2017-05-29] MEDS ORDERED: PSEUDOEPHEDRINE HCL 30 MG TAB PO PRN (13:15)
[2017-05-29] MEDS: HYDROMORPHONE 2MG/ML INJ IV PRN ×3 (13:38→21:39)
[2017-05-29] MEDS: LEVOFLOXACIN 500MG/D5W 100ML 100 ML IV SCH (14:56)
[2017-05-29] MEDS: LEVALBUTEROL HCL SOLN NEBU 0.63 MG/3 ML NEB INH SCH ×3 (15:45→23:35)
--- NOTE | 2017-05-29 16:22 | History and Physical ---
DATE OF : 1980 PRIMARY CARE PROVIDER: Dr. Tiago Yates. CHIEF COMPLAINT: Shortness of breath and wheezing. HISTORY OF PRESENT ILLNESS: Ms. Rose is a [id number] presenting with several days of worsening dyspnea with exertion, shortness of breath, wheezing, and nonproductive cough. She denies fever, chills, nausea, or vomiting. REVIEW OF SYSTEMS: She denies fever, chills, or weight loss. She complains of sinus congestion, sinus headache, and allergy symptoms. She denies chest pain or palpitations. She has shortness of breath, wheezing, and nonproductive cough. She denies abdominal pain, nausea, vomiting, or melena. She denies dysuria or flank pain. She denies rash or pruritus. She denies joint pain or swelling. She denies bleeding or bruising. She denies headache, vertigo, or loss of consciousness. She denies depression, agitation, homicidal or suicidal ideation. PAST MEDICAL HISTORY: Significant for intrinsic asthma, migraines, and allergies. MEDICATIONS: Her regular medications include; 1. Tylenol with Codeine as needed. 2. Neb treatments with albuterol and Symbicort. 3. Zyrtec 10 mg daily. 4. Singulair 10 mg daily. 5. Rifampin 300 mg twice daily. 6. Carafate 1 gram at bedtime. 7. Spiriva inhaler daily. 8. Doxycycline 100 mg twice a day, she has been on recently. 9. Estradiol 1 mg daily. 10. Pepcid 20 mg twice daily. 11. Gabapentin 300 mg twice daily. 12. Lorazepam 0.5 mg q.6 hours. 13. Omeprazole 40 mg twice daily before meals. 14. Imitrex 25 mg as needed for headache. 15. Topamax 25 mg twice daily. 16. Ambien 10 mg at bedtime. PAST SURGICAL HISTORY: She has a distant history of hysterectomy and appendectomy. ALLERGIES: SHE HAS A STATED ALLERGY TO ROLDAN, CEFTRIAXONE, ASPIRIN, FISH, AND PORK. SOCIAL HISTORY: She has never smoked. FAMILY HISTORY: Unremarkable. SOCIAL HISTORY: The patient is . Hungarian is her primary language. She does not smoke, drink, or use illegal drugs and she is generally independent functioning. PHYSICAL EXAM PSYCHIATRIC: She is alert and oriented times 3, with normal mood and affect. CONSTITUTIONAL: She has a normal body habitus, slightly overweight, in no acute distress. VITAL SIGNS: Blood pressure 108/60, pulse 109 and regular, respiratory rate 20, O2 sat 95% on 2 liters nasal cannula, temperature 98.4. HEENT: Her head is atraumatic. Her eyes are anicteric with clear conjunctivae. Ears and nares are without erythema or discharge. Oropharynx is clear. NECK: Supple. No mass or thyromegaly. LYMPHATIC SYSTEM: She has no palpable cervical, axillary, or inguinal adenopathy. CARDIOVASCULAR SYSTEM: Her heart has a regular rate rhythm without murmur or extra heart sound. She has no carotid bruit. She has no peripheral edema. She has weak dorsal pedal pulses. RESPIRATORY: Lungs are clear to auscultation INCOMPLETE DICTATION Job#: [id number] [facility]
--- NOTE | 2017-05-29 16:36 | History and Physical ---
ADDENDUM DATE OF : 1980 PRIMARY CARE PROVIDER: Dr. Tiago Yates. PHYSICAL EXAM RESPIRATORY: The patient has decreased breath sounds with decreased lung volumes, prolonged expiration with expiratory wheezing, and a nonproductive cough. GASTROINTESTINAL: Her abdomen is soft without organomegaly, masses, or tenderness. She has normal bowel sounds present. CUTANEOUS: Her skin is warm and dry to touch with no rash or skin breakdown. MUSCULOSKELETAL: Her joints are normal in alignment without erythema or swelling. She has no calf tenderness. NEUROLOGIC: Exam is nonfocal with intact cranial nerves and no motor or sensory deficits. DIAGNOSTIC STUDIES: Chest x-ray shows no acute disease. Her flu screen was negative. Her UA is clear. Troponin 0.001 and less than 0.001. Her chemistry shows normal electrolytes, CO2 26, creatinine 0.74, BUN 11 for a normal GFR, calcium 9.3, and glucose 95. Transaminases, bilirubin, and alk phos are normal. CBC shows a white count of 7.16 with a normal differential, hemoglobin 12.3, hematocrit 37.3, and platelet count 236,000. IMPRESSION AND PLAN 1. Acute asthma exacerbation. The patient will be getting supplemental oxygen, aggressive neb treatments, IV Solu-Medrol, IV Levaquin, Mucinex DM, and her silviculture teacher has been consulted for assistance. 1. For migraines, the patient will continue with Topamax scheduled and Imitrex as needed as well as [place] as needed. We will also give some Sudafed in case there is a sinus component. 2. For prophylaxis, the patient will be on Lovenox for deep venous thrombosis prophylaxis and Pepcid for gastrointestinal prophylaxis. Job#: [id number] BILL
[2017-05-29] MEDS: METOCLOPRAMIDE HCL 10 MG TAB PO SCH ×2 (16:45→21:39)
[2017-05-29] MEDS: ENOXAPARIN SOD INJ 40 MG/0.4 ML SYR SC SCH (16:45)
[2017-05-29] MEDS: ZOLPIDEM TARTRATE 10 MG TAB PO SCH (21:39)
[2017-05-30] VITALS (9 sets, daily range): BP systolic 102–111; BP diastolic 54–74
[2017-05-30] MEDS: LEVALBUTEROL HCL SOLN NEBU 0.63 MG/3 ML NEB INH SCH ×7 (01:00→22:10)
[2017-05-30] MEDS: GUAIFENESIN 600MG/DEXTROMETHORPHAN 30MG TABSR PO SCH ×4 (01:00→17:09)
--- NOTE | 2017-05-30 01:34 | Consultation ---
DATE OF CONSULTATION: May 29, 2017 PULMONARY/CRITICAL CARE CONSULTATION CHIEF COMPLAINT: Chronic persistent asthma. HISTORY OF PRESENT ILLNESS: The patient is a 36-year-old woman. She has a history of chronic persistent asthma. She is on high dose inhaled corticosteroids, as well as Singulair and bronchodilators at home. She has required intermittent steroids. She recently required hospitalization at [facility] and then at [facility] [place] for an asthma exacerbation. In the past, she received and had some hives. She also received immunotherapy, which was not successful. She applied for Nucala, but was denied by the insurance company. She is now applying for the new biological 5 inhibitor that just came on the market. She complains of worsening dyspnea and cough. She has congestion. Her symptoms have not been relieved with bronchodilators or with IV Solu-Medrol. She has no fever. She does have some sinus problems. PAST MEDICAL HISTORY 1. Sinusitis. 2. Chronic persistent asthma. 3. GE reflux. PAST SURGICAL HISTORY: History of bronchoscopy. SOCIAL HISTORY: The patient is not a smoker. She is not a drinker. She has no dogs or cats at home. She is using dust mite precautions at home. FAMILY HISTORY: Noncontributory. REVIEW OF SYSTEMS: She has some sinus congestion and headache. She does not complain of sore throat. She has no chest pain. She does have dyspnea and wheezing. She has no abdominal pain. There is no nausea or vomiting. She does have GE reflux. There is no leg edema. PHYSICAL EXAMINATION VITAL SIGNS: The patient is afebrile. The blood pressure is 108/60 and the pulse ox is 95% on 2 L. HEENT: Shows no facial swelling or erythema. The nasal mucosa is normal. The oropharynx is normal. LYMPHATIC: Shows no submandibular, cervical or supraclavicular adenopathy. CARDIAC: Reveals regular rhythm and regular with a normal S1 and S2. There are no murmurs or rubs. LUNGS: Auscultation of the lungs reveals wheezing bilaterally. ABDOMEN: Soft and nontender. There is no rebound or guarding. EXTREMITIES: Shows no leg edema or calf tenderness. There is no cyanosis or clubbing. SKIN: Shows no rashes. NEUROLOGIC: Shows no focal abnormalities. Chest x-ray shows no active disease. IMPRESSION 1. Chronic persistent asthma with acute exacerbation. 2. Chronic sinusitis. 3. Gastroesophageal reflux. PLAN 1. Continue the IV Solu-Medrol. 2. Aggressive bronchodilators. 3. Protonix twice a day along with Reglan to help control the acid reflux, which may be worsening the asthma. 4. Pain control for persistent back pain. Job#: [id number] LEORA
[2017-05-30] MEDS: LORAZEPAM INJ 2 MG/ML VIAL IV PRN ×3 (01:43→16:22)
[2017-05-30] MEDS: HYDROMORPHONE 2MG/ML INJ IV PRN ×4 (04:26→22:13)
[2017-05-30] MEDS: PANTOPRAZOLE SOD 40 MG TABEC PO SCH ×2 (07:56→17:09)
[2017-05-30] MEDS: METOCLOPRAMIDE HCL 10 MG TAB PO SCH ×4 (07:56→21:55)
[2017-05-30] MEDS: METHYLPREDNISOLONE SOD SUCC 125 MG/2ML VIAL IV SCH ×2 (08:49→21:55)
[2017-05-30] MEDS: ESTRADIOL 1 MG TAB PO SCH (08:49)
[2017-05-30] MEDS: GABAPENTIN 300 MG CAP PO SCH ×2 (08:49→17:09)
[2017-05-30] MEDS: TOPIRAMATE 25 MG TAB PO SCH ×2 (08:49→17:09)
[2017-05-30] MEDS: RIFAMPIN 300 MG CAP PO SCH ×2 (08:49→17:09)
[2017-05-30] MEDS: MONTELUKAST SODIUM 10 MG TAB PO SCH (08:49)
[2017-05-30] MEDS: MINOCYCLINE HCL 50 MG CAP PO SCH ×2 (08:49→17:09)
[2017-05-30 09:35] LABS: BASOPHILS # (AUTO) 0.1 (0.0-0.1); BASOPHILS % 1.1 % (0.0-1.0); EOSINOPHILS # (AUTO) 0.1 (0.0-0.4); EOSINOPHILS % 0.9 % (0.0-6.0); HEMATOCRIT 36.3 % (34.2-44.1); HEMOGLOBIN 12.2 g/dL (12.0-16.0); LYMPHOCYTES % 31.8 % (18.0-39.1); MEAN CORPUSCULAR HEMOGLOBIN 28.2 pg (28-32); MEAN CORPUSCULAR HGB CONC 33.6 g/dL (31-35); MONOCYTES # (AUTO) 0.5 (0.2-0.8); MONOCYTES % 8.4 % (4.4-11.3); NEUTROPHILS # (AUTO) 3.5 (2.1-6.9); NEUTROPHILS % 54.4 % (38.7-80.0); PLATELET COUNT 211 x10e3/uL (140-360); RED BLOOD COUNT 4.32 x10e6/uL (3.6-5.1); RED CELL DISTRIBUTION WIDTH 12.6 % (11.7-14.4)
[2017-05-30 09:56] LABS: ANION GAP 13.4 mmol/L (8-16); BLOOD UREA NITROGEN 10 mg/dL (7-26); BUN/CREATININE RATIO 13 (6-25); CALCIUM 9.2 mg/dL (8.4-10.2); CARBON DIOXIDE 28 mmol/L (22-29); CHLORIDE 103 mmol/L (98-107); CREATININE, SERUM 0.76 mg/dL (0.57-1.11); EST GLOMERULAR FILTRATION RATE > 60 ML/MIN (60-); GLUCOSE 104 mg/dL (74-118); MAGNESIUM 1.7 MG/DL (1.3-2.1); POTASSIUM 3.4 mmol/L (3.5-5.1); SODIUM 141 mmol/L (136-145)
[2017-05-30 10:17] LABS: THYROID STIMULATING HORMONE 0.988 uIU/mL (0.350-4.940)
[2017-05-30] MEDS ORDERED: POTASSIUM CHLORIDE 20 MEQ TAB CR PO ONE (11:15)
[2017-05-30] MEDS ORDERED: FLUCONAZOLE 200 MG/100 ML 100 ML IV ONE (11:30)
--- NOTE | 2017-05-30 14:01 | Diagnostic Imaging Report ---
EXAMINATION: CHEST XRAY LINE PLACEMENT 05/30/2017 1:27 PM COMPARISON: 05/03/2017 INDICATION: PICC line placement DISCUSSION: LINES: Right upper extremity PICC line has its tip near the cavoatrial junction LUNGS: The lung volumes are low. No pneumonia or pulmonary edema. PLEURA: No pleural effusion or pneumothorax. HEART AND MEDIASTINUM: The cardiomediastinal silhouette is unremarkable. BONES AND SOFT TISSUES: No acute osseous lesion. The soft tissues are normal. IMPRESSION: Right upper extremity PICC line has its tip near the cavoatrial junction Gonzalo Barrett MD Signed by: Dr. Gonzalo Barrett M.D. on 05/30/2017 1:58 PM
[2017-05-30] MEDS: LEVOFLOXACIN 500MG/D5W 100ML 100 ML IV SCH (15:13)
[2017-05-30] MEDS: ENOXAPARIN SOD INJ 40 MG/0.4 ML SYR SC SCH (17:09)
[2017-05-30] MEDS: ZOLPIDEM TARTRATE 10 MG TAB PO SCH (21:55)
[2017-05-31] VITALS (7 sets, daily range): BP systolic 101–114; BP diastolic 58–80
[2017-05-31] MEDS: GUAIFENESIN 600MG/DEXTROMETHORPHAN 30MG TABSR PO SCH ×4 (01:00→17:00)
[2017-05-31] MEDS: LEVALBUTEROL HCL SOLN NEBU 0.63 MG/3 ML NEB INH SCH ×8 (01:20→22:15)
[2017-05-31] MEDS: HYDROMORPHONE 2MG/ML INJ IV PRN ×5 (02:17→18:45)
[2017-05-31 06:08] LABS: BASOPHILS # (AUTO) 0.1 (0.0-0.1); BASOPHILS % 0.7 % (0.0-1.0); EOSINOPHILS % 0.1 % (0.0-6.0); HEMATOCRIT 35.4 % (34.2-44.1); HEMOGLOBIN 12.2 g/dL (12.0-16.0); LYMPHOCYTES # (AUTO) 1.7 (1.0-3.2); LYMPHOCYTES % 23.2 % (18.0-39.1); MEAN CORPUSCULAR HGB CONC 34.5 g/dL (31-35); MEAN CORPUSCULAR VOLUME 81.4 fL (81-99); MONOCYTES # (AUTO) 0.5 (0.2-0.8); MONOCYTES % 6.7 % (4.4-11.3); NEUTROPHILS # (AUTO) 4.7 (2.1-6.9); NEUTROPHILS % 63.4 % (38.7-80.0); PLATELET COUNT 219 x10e3/uL (140-360); RED BLOOD COUNT 4.35 x10e6/uL (3.6-5.1); RED CELL DISTRIBUTION WIDTH 12.6 % (11.7-14.4)
[2017-05-31 07:57] LABS: ANION GAP 14.2 mmol/L (8-16); BLOOD UREA NITROGEN 13 mg/dL (7-26); BUN/CREATININE RATIO 16 (6-25); CALCIUM 9.5 mg/dL (8.4-10.2); CARBON DIOXIDE 27 mmol/L (22-29); CHLORIDE 103 mmol/L (98-107); EST GLOMERULAR FILTRATION RATE > 60 ML/MIN (60-); GLUCOSE 95 mg/dL (74-118); POTASSIUM 4.2 mmol/L (3.5-5.1); SODIUM 140 mmol/L (136-145)
[2017-05-31 07:59] LABS: LYMPHOCYTES % (MANUAL) 27 % (19-48); MONOCYTES % (MANUAL) 10 % (3.4-9.0); NEUTROPHILS % (MANUAL) 63 % (40-74)
[2017-05-31 08:00] LABS: ANISOCYTOSIS SLIGHT; HYPOCHROMASIA SLIGHT; PLATELET ESTIMATE ADEQUATE; PLATELET MORPHOLOGY COMMENT NORMAL; RBC MORPHOLOGY COMMENT NORMAL
[2017-05-31] MEDS: PANTOPRAZOLE SOD 40 MG TABEC PO SCH ×2 (08:30→17:00)
[2017-05-31] MEDS: METOCLOPRAMIDE HCL 10 MG TAB PO SCH ×4 (08:30→21:22)
[2017-05-31] MEDS: RIFAMPIN 300 MG CAP PO SCH ×3 (09:00→21:22)
[2017-05-31] MEDS: ONDANSETRON HCL INJ 2 MG/ML VIAL IV PRN ×2 (09:30→14:30)
[2017-05-31] MEDS: GABAPENTIN 300 MG CAP PO SCH ×2 (09:30→17:00)
[2017-05-31] MEDS: MINOCYCLINE HCL 50 MG CAP PO SCH ×2 (09:30→17:00)
[2017-05-31] MEDS: ESTRADIOL 1 MG TAB PO SCH (09:30)
[2017-05-31] MEDS: TOPIRAMATE 25 MG TAB PO SCH ×2 (09:30→17:00)
[2017-05-31] MEDS: METHYLPREDNISOLONE SOD SUCC 125 MG/2ML VIAL IV SCH ×2 (09:30→21:22)
[2017-05-31] MEDS: MONTELUKAST SODIUM 10 MG TAB PO SCH (09:30)
[2017-05-31] MEDS: LORAZEPAM INJ 2 MG/ML VIAL IV PRN ×2 (11:15→21:12)
[2017-05-31] MEDS ORDERED: SODIUM CHLORIDE 0.9% 250ML 250 ML ONE (14:26)
[2017-05-31] MEDS: LEVOFLOXACIN 500MG/D5W 100ML 100 ML IV SCH (14:38)
[2017-05-31] MEDS: ENOXAPARIN SOD INJ 40 MG/0.4 ML SYR SC SCH (17:00)
[2017-05-31] MEDS: ZOLPIDEM TARTRATE 10 MG TAB PO SCH (21:22)
[2017-06-01] VITALS (7 sets, daily range): BP systolic 100–109; BP diastolic 55–75
[2017-06-01] MEDS: LEVALBUTEROL HCL SOLN NEBU 0.63 MG/3 ML NEB INH SCH ×8 (01:00→23:00)
[2017-06-01] MEDS: ZOLPIDEM TARTRATE 10 MG TAB PO SCH ×2 (02:35→20:16)
[2017-06-01] MEDS: GUAIFENESIN 600MG/DEXTROMETHORPHAN 30MG TABSR PO SCH ×4 (02:35→17:50)
[2017-06-01] MEDS: HYDROMORPHONE 2MG/ML INJ IV PRN ×4 (04:08→20:47)
[2017-06-01] MEDS: PANTOPRAZOLE SOD 40 MG TABEC PO SCH ×2 (07:30→16:34)
[2017-06-01] MEDS: METOCLOPRAMIDE HCL 10 MG TAB PO SCH ×4 (07:30→20:35)
[2017-06-01 07:31] LABS: BASOPHILS # (AUTO) 0.1 (0.0-0.1); BASOPHILS % 0.7 % (0.0-1.0); EOSINOPHILS % 0.2 % (0.0-6.0); HEMATOCRIT 35.1 % (34.2-44.1); HEMOGLOBIN 12.1 g/dL (12.0-16.0); LYMPHOCYTES # (AUTO) 2.2 (1.0-3.2); MEAN CORPUSCULAR HEMOGLOBIN 28.4 pg (28-32); MEAN CORPUSCULAR HGB CONC 34.5 g/dL (31-35); MEAN CORPUSCULAR VOLUME 82.4 fL (81-99); MONOCYTES # (AUTO) 0.8 (0.2-0.8); MONOCYTES % 9.5 % (4.4-11.3); NEUTROPHILS # (AUTO) 4.7 (2.1-6.9); NEUTROPHILS % 57.2 % (38.7-80.0); PLATELET COUNT 198 x10e3/uL (140-360); RED BLOOD COUNT 4.26 x10e6/uL (3.6-5.1); RED CELL DISTRIBUTION WIDTH 12.9 % (11.7-14.4)
[2017-06-01 07:46] LABS: ANION GAP 13.9 mmol/L (8-16); BLOOD UREA NITROGEN 19 mg/dL (7-26); BUN/CREATININE RATIO 24 (6-25); CALCIUM 9.3 mg/dL (8.4-10.2); CARBON DIOXIDE 27 mmol/L (22-29); CHLORIDE 103 mmol/L (98-107); CREATININE, SERUM 0.78 mg/dL (0.57-1.11); EST GLOMERULAR FILTRATION RATE > 60 ML/MIN (60-); GLUCOSE 78 mg/dL (74-118); POTASSIUM 3.9 mmol/L (3.5-5.1); SODIUM 140 mmol/L (136-145)
[2017-06-01] MEDS: TOPIRAMATE 25 MG TAB PO SCH ×2 (09:00→16:34)
[2017-06-01] MEDS: MONTELUKAST SODIUM 10 MG TAB PO SCH (09:00)
[2017-06-01] MEDS: MINOCYCLINE HCL 50 MG CAP PO SCH ×2 (09:00→16:34)
[2017-06-01] MEDS: ESTRADIOL 1 MG TAB PO SCH (09:00)
[2017-06-01] MEDS: RIFAMPIN 300 MG CAP PO SCH ×2 (09:00→20:35)
[2017-06-01] MEDS: GABAPENTIN 300 MG CAP PO SCH ×2 (09:00→16:34)
[2017-06-01] MEDS: METHYLPREDNISOLONE SOD SUCC 125 MG/2ML VIAL IV SCH ×2 (09:00→20:35)
[2017-06-01 10:38] LABS: LYMPHOCYTES % (MANUAL) 23 % (19-48); METAMYELOCYTES % (MANUAL) 1 % (0-0); MONOCYTES % (MANUAL) 11 % (3.4-9.0); MYELOCYTES % (MANUAL) 4 % (0-0); NEUTROPHILS % (MANUAL) 54 % (40-74)
[2017-06-01 10:39] LABS: ANISOCYTOSIS SLIGHT; POLYCHROMASIA FEW
[2017-06-01 10:40] LABS: PLATELET ESTIMATE ADEQUATE; PLATELET MORPHOLOGY COMMENT NORMAL; RBC MORPHOLOGY COMMENT NORMAL
[2017-06-01] MEDS: LEVOFLOXACIN 500MG/D5W 100ML 100 ML IV SCH (14:59)
[2017-06-01] MEDS: LORAZEPAM INJ 2 MG/ML VIAL IV PRN (14:59)
[2017-06-01] MEDS: ENOXAPARIN SOD INJ 40 MG/0.4 ML SYR SC SCH (16:34)
[2017-06-02] MEDS: GUAIFENESIN 600MG/DEXTROMETHORPHAN 30MG TABSR PO SCH ×4 (00:43→17:16)
[2017-06-02] MEDS: LEVALBUTEROL HCL SOLN NEBU 0.63 MG/3 ML NEB INH SCH ×8 (01:00→22:55)
[2017-06-02 04:00] VITALS: BP 99/54
[2017-06-02] MEDS ORDERED: HYDROCODONE/APAP 5MG-325MG TAB PO PRN (05:45)
[2017-06-02 06:32] LABS: BASOPHILS # (AUTO) 0.1 (0.0-0.1); BASOPHILS % 0.7 % (0.0-1.0); EOSINOPHILS % 0.1 % (0.0-6.0); HEMATOCRIT 34.7 % (34.2-44.1); HEMOGLOBIN 11.6 g/dL (12.0-16.0); LYMPHOCYTES # (AUTO) 2.2 (1.0-3.2); MEAN CORPUSCULAR HEMOGLOBIN 27.9 pg (28-32); MEAN CORPUSCULAR HGB CONC 33.4 g/dL (31-35); MEAN CORPUSCULAR VOLUME 83.4 fL (81-99); MONOCYTES # (AUTO) 0.8 (0.2-0.8); MONOCYTES % 9.9 % (4.4-11.3); NEUTROPHILS # (AUTO) 4.3 (2.1-6.9); NEUTROPHILS % 55.4 % (38.7-80.0); PLATELET COUNT 201 x10e3/uL (140-360); RED BLOOD COUNT 4.16 x10e6/uL (3.6-5.1); RED CELL DISTRIBUTION WIDTH 13.2 % (11.7-14.4)
[2017-06-02 06:54] LABS: ANION GAP 12.7 mmol/L (8-16); BLOOD UREA NITROGEN 18 mg/dL (7-26); BUN/CREATININE RATIO 24 (6-25); CARBON DIOXIDE 25 mmol/L (22-29); CHLORIDE 105 mmol/L (98-107); CREATININE, SERUM 0.74 mg/dL (0.57-1.11); EST GLOMERULAR FILTRATION RATE > 60 ML/MIN (60-); GLUCOSE 87 mg/dL (74-118); POTASSIUM 3.7 mmol/L (3.5-5.1); SODIUM 139 mmol/L (136-145)
[2017-06-02 08:40] VITALS: BP 99/54
[2017-06-02] MEDS: MONTELUKAST SODIUM 10 MG TAB PO SCH (08:40)
[2017-06-02] MEDS: METOCLOPRAMIDE HCL 10 MG TAB PO SCH ×4 (08:40→21:16)
[2017-06-02] MEDS: MINOCYCLINE HCL 50 MG CAP PO SCH ×2 (08:40→16:42)
[2017-06-02] MEDS: TOPIRAMATE 25 MG TAB PO SCH ×2 (08:40→16:42)
[2017-06-02] MEDS: ESTRADIOL 1 MG TAB PO SCH (08:40)
[2017-06-02] MEDS: RIFAMPIN 300 MG CAP PO SCH ×2 (08:40→21:16)
[2017-06-02] MEDS: GABAPENTIN 300 MG CAP PO SCH ×2 (08:40→16:42)
[2017-06-02] MEDS: METHYLPREDNISOLONE SOD SUCC 125 MG/2ML VIAL IV SCH ×2 (08:40→21:16)
[2017-06-02] MEDS: HYDROMORPHONE 2MG/ML INJ IV PRN ×3 (08:40→20:09)
[2017-06-02] MEDS: PANTOPRAZOLE SOD 40 MG TABEC PO SCH ×2 (08:40→16:42)
[2017-06-02 09:36] VITALS: BP 105/60
[2017-06-02] MEDS: LORAZEPAM INJ 2 MG/ML VIAL IV PRN ×2 (12:38→21:16)
--- NOTE | 2017-06-02 13:48 | Diagnostic Imaging Report ---
Examination: CT Face without Contrast History:Pain under the eyes Comparison studies: CT sinus 04/27/2017 Technique: Axial images were obtained through the maxillofacial region. Coronal and sagittal reconstructions obtained from the axial data. Intravenous contrast: None Findings: Soft tissues: No abnormalities. Bones: No fractures or bony abnormalities. Orbits: Globes: Intact Extra or intraconal abnormalities: None. Paranasal sinuses: Again seen small retention cyst cyst along the right maxillary sinus alveolar recess. Small retention cyst at the left sphenoid sinus anterior wall, not seen on previous examination. The remaining paranasal sinuses and drainage pathways are clear. There is an impacted left maxillary molar tooth. Nasal cavity: Mild mucosal thickening of the bilateral inferior and middle turbinates. Aerated bilateral middle turbinates. Leftward deviation of the nasal septum with a small spur. IMPRESSION: 1. Retention cyst within the right maxillary sinus, stable. 2. Small retention cyst at theleft sphenoid sinus, not seen on previous exam. 3. Leftward deviation of the nasal septum with small spur. Signed by: DR Ladarius Kennedy M.D. on 06/02/2017 1:44 PM
[2017-06-02] MEDS: LEVOFLOXACIN 500MG/D5W 100ML 100 ML IV SCH (15:01)
[2017-06-02 16:18] VITALS: BP 106/53
[2017-06-02] MEDS: ENOXAPARIN SOD INJ 40 MG/0.4 ML SYR SC SCH (16:42)
[2017-06-02 20:00] VITALS: BP 107/66
[2017-06-02 21:02] VITALS: BP 107/66
[2017-06-02] MEDS: ZOLPIDEM TARTRATE 10 MG TAB PO SCH (21:16)
[2017-06-03] MEDS: GUAIFENESIN 600MG/DEXTROMETHORPHAN 30MG TABSR PO SCH ×2 (00:19→05:36)
[2017-06-03 01:03] VITALS: BP 91/54
[2017-06-03 01:06] VITALS: BP 100/62
[2017-06-03] MEDS: LEVALBUTEROL HCL SOLN NEBU 0.63 MG/3 ML NEB INH SCH ×4 (02:30→10:52)
[2017-06-03] MEDS: HYDROMORPHONE 2MG/ML INJ IV PRN ×2 (04:07→09:24)
[2017-06-03 04:54] VITALS: BP 104/66
[2017-06-03] MEDS: LORAZEPAM INJ 2 MG/ML VIAL IV PRN (05:36)
[2017-06-03] MEDS: MONTELUKAST SODIUM 10 MG TAB PO SCH (08:23)
[2017-06-03] MEDS: RIFAMPIN 300 MG CAP PO SCH (08:23)
[2017-06-03] MEDS: PANTOPRAZOLE SOD 40 MG TABEC PO SCH (08:23)
[2017-06-03] MEDS: GABAPENTIN 300 MG CAP PO SCH (08:23)
[2017-06-03] MEDS: METHYLPREDNISOLONE SOD SUCC 125 MG/2ML VIAL IV SCH (08:23)
[2017-06-03] MEDS: METOCLOPRAMIDE HCL 10 MG TAB PO SCH (08:23)
[2017-06-03] MEDS: MINOCYCLINE HCL 50 MG CAP PO SCH (08:23)
[2017-06-03] MEDS: ESTRADIOL 1 MG TAB PO SCH (08:23)
[2017-06-03] MEDS: TOPIRAMATE 25 MG TAB PO SCH (08:23)
[2017-06-03 08:40] VITALS: BP 108/66
[2017-06-03] MEDS ORDERED: SINGULAIR10 MG PO (09:13)
[2017-06-03] MEDS ORDERED: PSEUDOEPHEDRINE30 MG PO (09:13)
[2017-06-03 10:06] VITALS: BP 108/66
[2017-06-03 12:05] VITALS: BP 108/56
== END 2017-06-03 12:44 | disposition home or self-care (01) | DRG 203 ==
LOC: ER 13:17 → ERHOLD 15:13 → MED/SURG 17:24 → MED/SURG2 05-31 20:00
PROVIDERS: ADMIT Internal Medicine; ATTEND Internal Medicine
PROC: 02HV33Z Insertion of Infusion Device into Superior Vena Cava, Percutaneous Approach (ICD-10-PCS; principal; 2017-05-30)
DX: J45.901 Unspecified asthma with (acute) exacerbation (principal); G43.909 Migraine, unspecified, not intractable, without status migrainosus; K21.9 Gastro-esophageal reflux disease without esophagitis; J32.9 Chronic sinusitis, unspecified
CPT/HCPCS: 36415; 36569; 70486; 71045; 71046; 80048; 80053; 81001; 82550; 82553; 83735; 84443; 84484; 85025; 87040; 87071; 87086; 87205; 87400; 94640; 99284; J1100; J1170; J1450; J1650; J1885; J1956; J2060; J2405; J2930; J3475; J7050

== ENCOUNTER 2017-08-25 21:23 | Emergency (ER) | payer OTHER ==
[~2017-08-25] VITALS: Ht 154.9 cm; Wt 92.1 kg
[~2017-08-25 21:23] MED LIST changes: +AMBIEN10 MG PO; +ESTRADIOL1 MG PO; +GABAPENTIN300 MG PO; +LORAZEPAM0.5 MG PO; +MINOCYCLINE HC100 MG PO; +PSEUDOEPHEDRINE30 MG PO; +RIFAMPIN300 MG PO; +SPIRIVA18 MCG INH
--- OUTSIDE RECORDS SUMMARY | 2017-08-25 21:27 | XMS REPORT | Summary of Care ---
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: Active Allergic rhinitis (477.9, J30.9) Status: Active Asthma (493.90, J45.909) Status: Active Chronic headaches (784.0, R51) Status: Active 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, 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 Medications Name Dates Details Ventolin [...] smoker Vital Signs Date Test Result Details 10-Jun-20179:20 BP Systolic 104 mm[Hg] Status: Comments: Location: LUE; Position: Sitting BP Diastolic 71 mm[Hg] Status: Comments: Location: LUE; Position: Sitting Height 61 in Status: Weight 197.3125 lb Status: Body Mass Index Calculated 37.28 kg/m2 Status: Body Surface Area Calculated 1.88 m2 Status: Heart Rate 90 /min Status: Respiration Rate 16 /min Status: [id number] BP Systolic 111 mm[Hg] Status: BP Diastolic 84 mm[Hg] Status: Height 61 in Status: Weight 187 lb Status: Body Mass Index Calculated 35.33 kg/m2 Status: Body Surface Area Calculated 1.84 m2 Status: Heart Rate 89 /min Status: Results Date Description Value Details Results not documented Plan of Care Name Dates Details Planned Observations Planned Goals not documented Instructions Name Dates Details Instructions not documented [...] Diagnosis: Problem not documented On: 24-May-2017 11:00 Appointment; MELISSA TORRES M.D. Encounter Diagnosis: Problem not documented On: 10-Jun-2017 9:30
--- OUTSIDE RECORDS SUMMARY | 2017-08-25 21:27 | XMS REPORT | Clinical Summary ---
Author Author [facility] Organization [facility] Address Unknown Phone Unavailable Care Team Providers [employer] Name Role Phone Tiago Yates DO PCP Allergies Active Allergy Reactions Severity Noted Date Comments Acetylcysteine Hives 08/05/2017 Aspirin 08/03/2017 Current Medications Prescription Sig. Disp. Refills Start End Date Status Date azithromycin (ZITHROMAX Take by mouth. Active ORAL) budesonide-formoterol Inhale 2 puffs 2 (two) Active (SYMBICORT) 160-4.5 times a day. mcg/actuation inhaler albuterol (PROAIR Inhale 2 puffs every 4 Active HFA,PROVENTIL (four) hours as needed HFA,VENTOLIN HFA) 90 for wheezing. mcg/actuation inhaler montelukast (SINGULAIR) Take 10 mg by mouth Active 10 mg tablet daily. cetirizine (ZyrTEC) 10 MG Take 10 mg by mouth Active tablet daily. pantoprazole (PROTONIX) Take 40 mg by mouth Active 40 MG EC tablet daily. tiotropium (SPIRIVA) 18 Place 1 capsule into Active mcg per inhalation inhaler and inhale once capsule daily. zolpidem (AMBIEN) 10 mg Take 10 mg by mouth Active tablet nightly. topiramate (TOPAMAX) 25 Take 50 mg by mouth 2 Active MG tablet (two) times a day. gabapentin (NEURONTIN) Take 300 mg by mouth 3 Active 100 mg capsule (three) times a day. Active Problems Problem Noted Date Chest pain 08/04/2017 Encounters Date Type Specialty Care Team Description 08/03/2017 Hospital Cardiology Corey Lu MD Chest pain, unspecified - Encounter Pebbles Diaz MD type (Primary Dx); 08/08/2017 Bronchitis; Hypoxia after 08/24/2016 Social History Tobacco Use Types Packs/Day Years Used Date Never Smoker Alcohol Use Drinks/Week oz/Week Comments No Sex Assigned at Date Recorded Not on file Last Filed Vital Signs Vital Sign Reading Time Taken Blood Pressure 115/61 08/08/2017 1:02 PM CDT Pulse 105 08/08/2017 1:19 PM CDT Temperature 36.5 C (97.7 F) 08/08/2017 1:02 PM CDT Respiratory Rate 20 08/08/2017 1:19 PM CDT Oxygen Saturation 96% 08/08/2017 1:13 PM CDT Inhaled Oxygen - - Concentration Weight 92.5 kg (204 lb) 08/08/2017 3:39 AM CDT Height - - Body Mass Index - - Plan of Treatment Health Maintenance Due Date Last Done Comments CERVICAL CANCER SCREENING 12/27/2000 INFLUENZA VACCINE 11/03/2017 Procedures Procedure Name Priority Date/Time Associated Diagnosis Comments ND CRITICAL CARE, E/M Routine 08/03/2017 Results for this 30-74 MINUTES 8:18 PM CDT procedure are in the results section. after 08/24/2016 Results * ECG 12 lead (08/05/2017 2:09 PM) Only the most recent of 2 results within the time period is included. Component Value Ref Range Ventricular rate 87 Atrial rate 87 ND interval 128 QRSD interval 76 QT interval 360 QTC interval 433 P axis 1 39 QRS axis 1 56 T wave axis 46 EKG impression Normal sinus rhythm-Normal ECG-In automated comparison with ECG of 03-AUG-2017 18:59,-No significant change was found- Specimen Performing Laboratory [facility] [address] [place] [id number] * CBC with platelet and differential (08/05/2017 5:30 AM) Only the most recent of 3 results within the time period is included. Component Value Ref Range WBC 9.84 4.50 - 11.00 k/uL RBC 4.53 4.20 - 5.50 m/uL HGB 12.6 12.0 - 16.0 g/dL HCT 37.9 37.0 - 47.0 % MCV 83.7 82.0 - 100.0 fL MCH 27.8 27.0 - 34.0 pg MCHC 33.2 31.0 - 37.0 g/dL RDW - SD 37.5 37.0 - 55.0 fL MPV 10.8 8.8 - 13.2 fL Platelet count 164 150 - 400 k/uL Nucleated RBC 0.00 /100 WBC Neutrophils 81.1 (H) 39.0 - 69.0 % Lymphocytes 11.6 (L) 25.0 - 45.0 % Monocytes 6.0 0.0 - 10.0 % Eosinophils 0.0 0.0 - 5.0 % Basophils 0.1 0.0 - 1.0 % Immature granulocytes 1.2 (H)Comment: "Immature granulocytes" 0.0 - 1.0 % (promyelocytes, myelocytes, metamyelocytes) Specimen Performing Laboratory Blood [facility] OF [facility]OM[facility]IC[facility] [address] [place] [id number] * Estimated GFR (08/05/2017 4:00 AM) Only the most recent of 3 results within the time period is included. Component Value Ref Range GFR Non Af Amer >90 mL/min/1.73 m2 GFR Af Amer >90 mL/min/1.73 m2 Comment: Chronic kidney disease: <60 mL/min/1.73m2 Kidney failure: <15 mL/min/1.73m2 The estimated GFR is calculated from the IDMS-traceable Modification of Diet in Renal Disease Equation. The accuracy of the calculation is poor when the creatinine is normal. Calculated values >90 mL/min/1.73m2 are not reported. This equation has not been validated in children (<18 years), women, the elderly (>70 years), or ethnic groups other than Caucasians and Americans. Specimen Performing Laboratory Plasma specimen [facility] [address] [place] [id number] * Magnesium level (08/05/2017 4:00 AM) Only the most recent of 3 results within the time period is included. Component Value Ref Range Magnesium 2.1 1.6 - 2.6 mg/dL Specimen Performing Laboratory Plasma specimen [facility] DEPARTMENT OF PATHOLOGY AND [facility] [address] [place] [id number] * Basic metabolic panel (08/05/2017 4:00 AM) Only the most recent of 3 results within the time period is included. Component Value Ref Range Sodium 141 135 - 148 mEq/L Potassium 4.1 3.5 - 5.0 mEq/L Chloride 105 98 - 112 mEq/L CO2 22 (L) 24 - 31 mEq/L Anion gap 14 7 - 15 mEq/L Comment: Starting from July , anion gap calculation no longer incorporates potassium. Please note the change. BUN 12 6 - 20 mg/dL Creatinine 0.6 0.5 - 0.9 mg/dL Glucose 174 (H) 65 - 99 mg/dL Calcium 9.7 8.3 - 10.2 mg/dL Specimen Performing Laboratory Plasma specimen [facility] [place]MENT [place] [address] * Arterial blood gas (08/04/2017 1:27 PM) Component Value Ref Range pH, arterial 7.42 7.35 - 7.45 pCO2, arterial 32 (L) 35 - 45 mmHg pO2, arterial 103 (H) 80 - 90 mmHg Bicarbonate, arterial 20.6 (L) 21.0 - 28.0 mmol/L Base excess, arterial -3 (L) -2 - 2 mEq/L O2 saturation, arterial 98 95 - 100 % Specimen Performing Laboratory Blood [facility] [place] [address] * Streptococcus pneumoniae urinary antigen (08/04/2017 5:39 AM) Only the most recent of 2 results within the time period is included. Component Value Ref Range Strep pneumo urinary Ag Negative for Streptococcus pneumoniae antigen. Comment: Specimen Information Specimen Source: Urine Specimen Site: Clean catch Specimen Performing Laboratory Urine [facility] [place] [address] * Legionella urinary antigen (08/04/2017 5:39 AM) Only the most recent of 2 results within the time period is included. Component Value Ref Range Legionella urinary Negative for Legionella serogroup 1 antigen. antigen Comment: Specimen Information Specimen Source: Urine Specimen Site: Clean catch Specimen Performing Laboratory Urine [facility] [place] [address] * Thyroid stimulating hormone (08/04/2017 4:25 AM) Component Value Ref Range TSH 0.33 0.27 - 4.20 uIU/mL Specimen Performing Laboratory Plasma specimen [facility] [place] [address] * Troponin (08/04/2017 4:11 AM) Only the most recent of 3 results within the time period is included. Component Value Ref Range Troponin <0.30 0.00 - 0.30 ng/mL Comment: 0.30 - 1.49 ng/ml May indicate increased risk of acute coronary syndrome. >=1.5 ng/ml Consistent with acute myocardial infarction. The diagnostic value of a single normal or non-diagnostic result is questionable. Serial samples at 2-6 hour intervals are required to rule out acute myocardial injury. Specimen Performing Laboratory Plasma specimen [facility] OF [facility]OLOG[facility] AND GENOMIC MEDICINE [address] [place] [address] * CT Angiogram Pe Chest (08/03/2017 11:41 PM) Specimen Performing Laboratory [facility] [address] [place] [address] Narrative EXAMINATION: CT ANGIOGRAM PE CHEST CLINICAL HISTORY: sob TECHNIQUE:PE PROTOCOL: CT angiographic images of the chest were obtained during intravenous administration of iodinated contrast. Computerized reformatted images and 3-D MIP images were also obtained and archived (CT pulmonary embolus protocol). CT imaging was performed with iterative reconstruction technique and/or automated exposure control to reduce radiation dose. COMPARISON: No prior IMPRESSION: CHEST: 1. Pulmonary Arteries: No definite CT scan evidence of acute pulmonary embolus. 2. Aorta: The thoracic aorta is nonaneurysmal 3. Heart: The heart is normal in size. 4. Pericardial Fluid: No pericardial effusion. 5. Mediastinum: No enlarged mediastinal or hilar lymphadenopathy. No mediastinal mass. 4. Airways: Central airways are patent. 5. Lungs: No acute infiltrates or suspicious pulmonary nodules or masses. The lungs are clear. 6. Pleural Fluid: No pleural effusions. 7. Bones: Osseous structures intact. No destructive bony lesions. 8. Upper Abdomen: No suspicious abnormalities. 9. Other Findings: None [id number] Procedure Note [facility], Radiology Results [facility] - 08/03/2017 11:48 PM CDT EXAMINATION: CT ANGIOGRAM PE CHEST CLINICAL HISTORY: sob TECHNIQUE: PE PROTOCOL: CT angiographic images of the chest were obtained during intravenous administration of iodinated contrast. Computerized reformatted images and 3-D MIP images were also obtained and archived (CT pulmonary embolus protocol). CT imaging was performed with iterative reconstruction technique and/or automated exposure control to reduce radiation dose. COMPARISON: No prior IMPRESSION: CHEST: 1. Pulmonary Arteries: No definite CT scan evidence of acute pulmonary embolus. 2. Aorta: The thoracic aorta is nonaneurysmal 3. Heart: The heart is normal in size. 4. Pericardial Fluid: No pericardial effusion. 5. Mediastinum: No enlarged mediastinal or hilar lymphadenopathy. No mediastinal mass. 4. Airways: Central airways are patent. 5. Lungs: No acute infiltrates or suspicious pulmonary nodules or masses. The lungs are clear. 6. Pleural Fluid: No pleural effusions. 7. Bones: Osseous structures intact. No destructive bony lesions. 8. Upper Abdomen: No suspicious abnormalities. 9. Other Findings: None [facility]-[id number] * Urinalysis screen and microscopy, with reflex to culture (08/03/2017 8:56 PM) Component Value Ref Range Specimen site Clean catch Color, UA Straw Appearance, UA Hazy Specific gravity, UA 1.019 1.001 - 1.035 pH, UA 6.0 5.0 - 8.5 Protein, UA Negative Negative Glucose, UA Negative Negative Ketones, UA Negative Negative Bilirubin, UA Negative Negative Blood, UA Negative Negative Nitrite, UA Negative Negative Urobilinogen, UA <2.0 <2.0 Leukocyte esterase, UA Negative Negative Epithelial cells, UA 5 /HPF WBC, UA 1 0 - 4 /HPF RBC, UA <1 0 - 5 /HPF Bacteria, UA Moderate (A) None seen Yeast, UA None seen Yeast with pseudohyphae, None seen UA Specimen Performing Laboratory Urine [facility] OF PATHOLOGY [facility] GENOM[facility] MEDICINE [address] [place] [address] * hCG qualitative, urine screen (08/03/2017 8:56 PM) Component Value Ref Range hCG qualitative, urine NegativeComment: Sensitivity of HCG test: 25 mIU/mL Specimen Performing Laboratory Urine [facility] OF PATHOLOG[facility] GENOMIC MEDICINE [address] [place] [address] * Gram stain (08/03/2017 8:56 PM) Component Value Ref Range Gram stain result No WBC's Moderate Gram positive rods Comment: Specimen Information Specimen Source: Urine Specimen Site: Clean catch Specimen Performing Laboratory Urine [facility] PATH[facility]OM[facility] MEDICINE [address] [place] [id number] * Urine culture (08/03/2017 8:56 PM) Component Value Ref Range Urine culture isolate Beta Streptococcus, not group B 10-3 cfu/ml (A) Comment: Specimen Information Specimen Source: Urine Specimen Site: Clean catch Urine culture isolate Mixed Gram positive susannah 10-2 cfu/ml (A) Urine culture isolate Mixed Gram negative rods <10-1 cfu/ml (A) Specimen Performing Laboratory Urine [facility] PATH[facility]IC[facility] [address] [place] [address] * Respiratory pathogen panel (08/03/2017 8:46 PM) Component Value Ref Range Respiratory pathogen Negative for all pathogens tested: panel Negative for Adenovirus Negative for Coronavirus HKU1 Negative for Coronavirus NL63 Negative for Coronavirus 229E Negative for Coronavirus OC43 Negative for Human Metapneumovirus Negative for Rhinovirus/Enterovirus Negative for Influenza A Negative for Influenza A/H1 Negative for Influenza A/H3 Negative for Influenza A/H1-2009 Negative for Influenza B Negative for Parainfluenza Virus 1 Negative for Parainfluenza Virus 2 Negative for Parainfluenza Virus 3 Negative for Parainfluenza Virus 4 Negative for Respiratory Syncytial Virus Negative for Bordetella pertussis Negative for Chlamydophila pneumoniae Negative for Mycoplasma pneumoniae This real-time PCR assay detects the presence of nucleic acids (RNA or DNA) for the respiratory pathogens listed. A result of "Not-detected" does not exclude the possibility of the presence of one or more pathogens at concentrations less than the detectable limits of the assay. Comment: Specimen Information Specimen Source: Nares Specimen Site: Left Specimen Performing Laboratory Nares - Left [facility] OF PATHOLOGY [facility]OM[facility] MEDICINE [address] [place] [address] * Blood culture, aerobic & anaerobic (08/03/2017 8:46 PM) Only the most recent of 2 results within the time period is included. Component Value Ref Range Blood culture isolate No growth after 5 days of incubation. Comment: Specimen Information Specimen Source: Blood Specimen Site: Arm Specimen Performing Laboratory Blood - Arm [facility] OF [facility]OM[facility]INE [address] [place] [address] * Partial thromboplastin time, activated (08/03/2017 8:46 PM) Component Value Ref Range PTT 25.8 23.0 - 36.0 sec Comment: PTT therapeutic range for unfractionated heparin is 61.0-112.0 seconds which corresponds to Anti-Xa 0.3-0.7 U/ml. Specimen Performing Laboratory Blood [facility] OF PATH[facility]OM[facility] MEDICINE [address] [place] [address] * Prothrombin time with INR (08/03/2017 8:46 PM) Component Value Ref Range Prothrombin time 13.4 12.0 - 15.0 sec INR 1.0 Comment: The International Normalized Ratio (INR) is a therapeutic monitoring tool for patients who are stable on oral anticoagulant therapy. An INR of 2.0-3.0 is suggested for deep vein thrombosis/pulmonary embolism. Specimen Performing Laboratory Blood [facility] [address] [address] * Phosphorus level (08/03/2017 8:46 PM) Component Value Ref Range Phosphorus 3.1 2.4 - 4.5 mg/dL Specimen Performing Laboratory Plasma specimen [facility] [place] [id number] * B natriuretic peptide (08/03/2017 8:46 PM) Component Value Ref Range BNP 20 0 - 100 pg/mL Specimen Performing Laboratory Blood [facility] [place] [id number] * Venous blood gas (08/03/2017 8:46 PM) Component Value Ref Range pH, venous 7.41 7.32 - 7.42 pCO2, venous 33 (L) 45 - 51 mmHg pO2, venous 62 (H) 25 - 40 mmHg Base excess, venous -3 (L) -2 - 2 meq/L O2 saturation, venous 92 (H) 40 - 70 % Bicarbonate, venous 20.3 (L) 21.0 - 28.0 mmol/L Specimen Performing Laboratory Blood [facility] [place] [id number] * Hepatic function panel (08/03/2017 8:46 PM) Component Value Ref Range Albumin 3.8 3.5 - 5.0 g/dL Total bilirubin <0.2 0.0 - 1.2 mg/dL Bilirubin direct <0.2 0.0 - 0.3 mg/dL Alkaline phosphatase 63 35 - 104 U/L Protein 7.1 6.3 - 8.3 g/dL Comment: [place] 4.6-7.0 g/dL 1 week 4.4-7.6 g/dL 7 months-1year 5.1-7.3 g/dL 1-2 years 5.6-7.5 g/dL >3 years 6.0-8.0 g/dL 18-150 6.3-8.3 g/dL ALT 43 5 - 50 U/L AST 42 (H) 10 - 35 U/L Specimen Performing Laboratory Plasma specimen [facility] PATHOLOGY AND [place] [id number] * CRITICAL CARE (08/03/2017 8:18 PM) Narrative Corey Lu MD 08/04/2017 10:42 AM Critical Care Performed by: COREY LU Authorized by: COREY LU Critical care provider statement: Critical care time (minutes):35 Critical care time was exclusive of:Separately billable procedures and treating other patients and teaching time Critical care was necessary to treat or prevent imminent or life-threatening deterioration of the following conditions:Respiratory failure Critical care was time spent personally by me on the following activities:Obtaining history from patient or surrogate, examination of patient, evaluation of patient's response to treatment, discussions with primary provider, discussions with consultants, development of treatment plan with patient or surrogate, blood draw for specimens, ordering and performing treatments and interventions, ordering and review of laboratory studies, ordering and review of radiographic studies, pulse oximetry, re-evaluation of patient's condition and review of old charts after 08/24/2016 Insurance Payer Benefit Subscriber ID Type Phone Address Plan / Group [employer] xxxxxxxxx [facility]
--- OUTSIDE RECORDS SUMMARY | 2017-08-25 21:27 | XMS REPORT | Continuity of Care Document ---
Author Author [facility] Organization [facility] Address [address] [place] [address] Phone Unavailable Care Team Providers Care Allergy Specialist Name Role Phone CAESAR BHAKTA DO PCP Insurance Providers Guarantor Kylah Rose Address [address] [place] [address] Email [email or web address] Payer [employer] Policy Number [id number] Subscriber's Name Kylah Rose Relationship 18 Self / Same As Patient Effective Date 17 Advance Directives Directive Response Recorded Date/Time Does the patient have an advance directive? No 05/28/17 8:00pm If yes, is advance directive on file with [facility]? No 05/28/17 8:00pm If not on file with [facility] will patient provide a copy? No 05/28/17 8:00pm Do you have a Directive to Physician? No 05/28/17 3:02pm Do you have a Medical Power of Office Administrator? No 05/28/17 3:02pm Do you have an out of hospital Do Not Resuscitate Order? No 05/28/17 3:02pm Do you have any special needs we should be aware of? No 05/28/17 3:02pm Do you have a support person here with you today? Yes 05/28/17 3:02pm Did patient receive Notice of Privacy Practices? Yes 05/28/17 3:02pm Did patient receive patient rights and responsibilities? Yes 05/28/17 3:02pm Problems Medical Problem Onset Date Status Asthma exacerbation 05/21/2014 Acute Asthma with acute exacerbation in adult Unknown Bronchitis Unknown Erosive esophagitis 05/26/2014 Acute Laryngospasm 01/19/2014 [...] Oral Daily THERAPEUTICALLY SUBSTITUTED WITH LORATIDINE 10MG Estradiol 1 Mg Tab 1 Mg Oral Daily 30 Tab Famotidine (Pepcid) 20 Mg Tablet 20 Mg Oral Twice A Day 60 Tab Gabapentin 300 Mg Capsule 300 Mg Oral Twice A Day 60 Cap Lorazepam 0.5 Mg Tablet 0.5 Mg Oral Every 6 Hours Minocycline Hcl 100 Mg Capsule 100 Cap Oral Twice A Day Montelukast Sodium (Singulair) 10 Mg Tablet 10 Mg Oral Daily Montelukast Sodium (Singulair) 10 Mg Tablet 10 Mg Oral Daily 30 Days 30 06/03/17 Omeprazole 40 Mg Capsule.dr 40 Mg Oral Twice A Day Pseudoephedrine Hcl 30 Mg Tab 60 Mg Oral Every 6 Hours as needed for Sinus 30 Days 100 Tab 06/03/17 Rifampin 300 Mg Capsule 300 Mg Oral Twice A Day 60 Cap Sucralfate (Carafate) 1 Gm/10 Ml Oral.susp 1 Gm Oral Daily Sumatriptan Succinate (Imitrex) 25 Mg Tablet 25 Mg Oral Daily as needed for Headache Tiotropium [place] (Spiriva) 18 Mcg Cap.w.dev 18 Mcg Inhalation Daily Topiramate (Topamax) 25 Mg Tablet Zolpidem Tartrate (Ambien) 10 Mg Tablet 10 Mg Oral Bedtime 30 Tab Past Home Medications Medication Directions Ordered Status [...] 20 Mg Oral Twice A Day Discontinued Gabapentin 100 Mg Capsule, Discontinued Hydrocodone Bit/Acetaminophen ([place]ron 7.5-325 Tablet) 1 Each Tablet, 1 Ea [...] Oral Bedtime as needed for Anxiety Discontinued Tramadol Hcl (Ultram 50MG*) 50 Mg Tab, 50 Mg Oral Daily Discontinued Social History Social History Problem Response Recorded Date/Time Onset Date Status Hx Psychiatric Problems No 05/28/2017 8:00pm Not Applicable Not Applicable Hx Eating Disorder No 05/28/2017 8:00pm Not Applicable Not Applicable Hx Substance Use Disorder No 05/28/2017 8:00pm Not Applicable Not Applicable Hx Depression No 05/28/2017 8:00pm Not Applicable Not Applicable Hx Alcohol Use No 05/28/2017 8:00pm Not Applicable Not Applicable Hx Substance Use Treatment No 05/28/2017 8:00pm Not Applicable Not Applicable Hx Physical Abuse No 05/28/2017 8:00pm Not Applicable Not Applicable Smoking Status Start Date Stop Date Never Smoker Hospital Discharge Instructions No hospital discharge instruction information available. Plan of Care Discharge Date 06/03/17 12:44pm Disposition HOME, SELF-CARE Instructions/Education Provided Asthma Exacerbation - Pediatric Prescriptions See Medication Section Referrals (Otolaryngology) Entered Date: 06/03/2017 9:16am [facility] (Pulmonary) Entered Date: 06/03/2017 9:18am Additional Instructions/Education FOLLOW UP WITH DR. TORRES (ENT). Functional Status Query Response Date Recorded Assistive Devices None May 28, 2017 8:00pm Ambulation Ability Independent May 28, 2017 8:00pm Toileting Ability Independent June 03, 2017 9:28am Allergies, Adverse Reactions, Alerts Allergen Type Severity [...] Vital Signs Vital Response Date/Time Temperature (Fahrenheit) 97.0 degrees F (97.6 - 99.5) 06/03/2017 12:05pm Pulse Pulse Rate (adult) 93 bpm (60 - 90) 06/03/2017 12:05pm Respiratory Rate 20 bpm (12 - 24) 06/03/2017 12:05pm Blood Pressure 108/56 mm Hg 06/03/2017 12:05pm Height 5 ft 1 in 05/28/2017 2:24pm Weight 227.38 lb 06/03/2017 8:41am Body Mass Index 43.0 kg/m^2 06/03/2017 8:41am Results Laboratory Results Test Name Result Units Flags Reference Collection Date/Time Result Date/ Time Comments Urine Test NEGATIVE NEGATIVE 01/10/2017 2:05pm 01/10/2017 2 :41pm Amylase Level 90 U/L 25-125 01/10/2017 2:05pm 01/10/2017 2:56pm Lipase 31 U/L 8-78 01/10/2017 2:05pm 01/10/2017 2:56pm Vancomycin Level Trough 4.0 ug/mL L 5.0-10.0 05/02/2017 1:50pm 2017 2:21pm Dermatophagoides pteronyssinus IgE 13.40 kU/L H Class IV 04/27/2017 11: 25am 05/01/2017 11:12pm Miscellaneous Allergen ASM Class Comment . 04/27/2017 11:25am 2017 11:12pm Levels of Specific IgE Class Description of Class ----- < 0.10 0 Negative 0.10 - 0.31 0/I Equivocal/Low 0.32 - 0.55 I Low 0.56 - 1.40 II Moderate 1.41 - 3.90 III High 3.91 - 19.00 IV Very High 19.01 - 100.00 V Very High >100.00 Very High [place] Grass Allergen IgE Antibody <0.10 kU/L Class 0 04/27/2017 11: 25am 05/01/2017 11:12pm Efraín Grass Allergen IgE Ab <0.10 kU/L Class 0 04/27/2017 11:25am 11:12pm [place] Grass Allergen IgE Antibody <0.10 kU/L Class 0 04/27/2017 11:25am 05/01/2017 11:12pm Citizen Of [place] Cockroach Allergen 0.26 kU/L H Class 0/I 04/27/2017 11:25am 11:12pm Penicillium chrysogen/notatum IgE <0.10 kU/L Class 0 04/27/2017 11:25am 05/01/2017 11:12pm Aspergillus fumigatus Allergen IgE <0.10 kU/L Class 0 04/27/2017 11: 25am 05/01/2017 11:12pm Mucor racemosus Allergen IgE Ab <0.10 kU/L Class 0 04/27/2017 11:25am 05/01/2017 11:12pm Stemphylium herbarum Allergen IgE <0.10 kU/L Class 0 04/27/2017 11:25am 05/01/2017 11:12pm Citizen Of [place] Elm Tree Allergen IgE Ab <0.10 kU/L Class 0 04/27/2017 11:25am 05/01/2017 11:12pm Maple ([place]) Allergen IgE Ab <0.10 kU/L Class 0 04/27/2017 11:25am 05/01/2017 11:12pm [place] Tree Allergen IgE Ab <0.10 kU/L Class 0 04/27/2017 11: 25am 05/01/2017 11:12pm [place] Tree Allergen IgE Antibody <0.10 kU/L Class 0 04/27/2017 11: 25am 05/01/2017 11:12pm [place] Allergen <0.10 kU/L Class 0 04/27/2017 11:25am 2017 11:12pm [place] Tree Allergen IgE Antibod <0.10 kU/L Class 0 04/27/2017 11: 25am 05/01/2017 11:12pm [place] Tree Allergen IgE Ab 0.14 kU/L H Class 0/I 04/27/2017 11: 25am 05/01/2017 11:12pm Mugwort IgE Allergen 0.55 kU/L H Class I 04/27/2017 11:25am 05/01/2017 11:12pm [place] Plantain Allergen IgE Ab <0.10 kU/L Class 0 04/27/2017 11:25am 05/01/2017 11:12pm [place] Allergen IgE Antibody <0.10 kU/L Class 0 04/27/2017 11: 25am 05/01/2017 11:12pm [place] Allergen IgE Antibody <0.10 kU/L Class 0 04/27/2017 11:25am 11:12pm Performed at: [address] [id number] Seo Engineer: Hudson Fritz MD, Phone: [phone] [id number]-[id number] 147 mg/dL 90-200 04/29/2017 5:47am 05/01/2017 11: 11pm Performed at: [address] [id number] Seo Engineer: FELICIA Farrar MD, Phone: [phone] Immunoglobulin E 195 IU/mL H 0-100 04/28/2017 6:01am 05/04/2017 4:41am Performed at: [address] [id number] Seo Engineer: Hudson Fritz MD, Phone: [phone] Immunoglobulin A 61 mg/dL L 87-352 04/28/2017 6:01am 04/30/2017 5:55am Alternaria alternata IgE Allergen <0.10 kU/L [...] kU/L Class 0 04/27/2017 11:25am 2017 11:12pm [place] Tree Allergen IgE Antibody <0.10 kU/L Class 0 04/27/2017 11:25am 11:12pm Rough Pigweed Allergen <0.10 kU/L Class 0 04/27/2017 11:25am 2017 11:12pm [place] Grass Allergen IgE Antibody <0.10 kU/L Class 0 04/27/2017 11: 25am 05/01/2017 11:12pm Immunoglobulin G 593 mg/dL L 700-1600 04/28/2017 6:01am 04/30/2017 5: 55am Immunoglobulin M 90 mg/dL 26-217 04/28/2017 6:am 04/30/2017 5:55am Performed at: - [address] [id number] Seo Engineer: Eliceo Weeks MD, Phone: [phone] Aspergillus fumigatus Antibody Negative Neg:<1:1 04/27/2017 11:25am 05/01/2017 11:11pm Aspergillus flavus Antibody Negative Neg:<1:1 04/27/2017 11:25am 11:11pm Aspergillus niger Antibody Negative Neg:<1:1 04/27/2017 11:25am 05/01 11:12pm Performed at: [facility] [id number] Seo Engineer: Hudson Fritz MD, Phone: [phone] White Blood Count 7.69 x10e3/uL 4.8-10.8 06/02/2017 6:00am 06/02/2017 6 :47am Red Blood Count 4.16 x10e6/uL 3.6-5.1 06/02/2017 6:00am 06/02/2017 6: 47am Hemoglobin 11.6 g/dL L 12.0-16.0 06/02/2017 6:00am 06/02/2017 6:47am Hematocrit 34.7 % 34.2-44.1 06/02/2017 6:00am 06/02/2017 6:47am Mean Corpuscular Volume 83.4 fL 81-99 06/02/2017 6:00am 06/02/2017 6: 47am Mean Corpuscular Hemoglobin 27.9 pg L 28-32 06/02/2017 6:00am 2017 6:47am Mean Corpuscular Hemoglobin Concent 33.4 g/dL 31-35 06/02/2017 6:00am 06/02/2017 6:47am Red Cell Distribution Width 13.2 % 11.7-14.4 06/02/2017 6:00am 2017 6:47am Platelet Count 201 x10e3/uL 140-360 06/02/2017 6:00am 06/02/2017 6: 47am Neutrophils (%) (Auto) 55.4 % 38.7-80.0 06/02/2017 6:00am 06/02/2017 6: 47am Lymphocytes (%) (Auto) 28.0 % 18.0-39.1 06/02/2017 6:00am 06/02/2017 6: 47am Monocytes (%) (Auto) 9.9 % 4.4-11.3 06/02/2017 6:00am 06/02/2017 6: 47am Eosinophils (%) (Auto) 0.1 % 0.0-6.0 06/02/2017 6:00am 06/02/2017 6: 47am Basophils (%) (Auto) 0.7 % 0.0-1.0 06/02/2017 6:00am 06/02/2017 6:47am IM GRANULOCYTES % 5.9 % H 0.0-1.0 06/02/2017 6:00am 06/02/2017 6:47am Neutrophils # (Auto) 4.3 2.1-6.9 06/02/2017 6:00am 06/02/2017 6:47am Lymphocytes # (Auto) 2.2 1.0-3.2 06/02/2017 6:00am 06/02/2017 6:47am Monocytes # (Auto) 0.8 0.2-0.8 06/02/2017 6:00am 06/02/2017 6:47am Eosinophils # (Auto) 0.0 0.0-0.4 06/02/2017 6:00am 06/02/2017 6:47am Basophils # (Auto) 0.1 0.0-0.1 06/02/2017 6:00am 06/02/2017 6:47am Absolute Immature Granulocyte (auto 0.45 x10e3/uL H 0-0.1 06/02/2017 6: 00am 06/02/2017 6:47am Differential Total Cells Counted 100 06/01/2017 7:20am 06/01/2017 10:41am Neutrophils % (Manual) 54 % 40-74 06/01/2017 7:20am 06/01/2017 10:41am Band Neutrophils % 3 % 05/29/2017 7:05am 05/29/2017 10:23am Lymphocytes % (Manual) 23 % 19-48 06/01/2017 7:20am 06/01/2017 10:41am Monocytes % (Manual) 11 % H 3.4-9.0 06/01/2017 7:20am 06/01/2017 10: 41am Eosinophils % (Manual) 1 % 0-7 05/28/2017 2:48pm 05/28/2017 5:38pm Basophils % (Manual) 1 % 0-1.5 06/01/2017 7:20am 06/01/2017 10:41am Metamyelocytes % 1 % H 0-0 06/01/2017 7:20am 06/01/2017 10:41am Myelocytes % 4 % H 0-0 06/01/2017 7:20am 06/01/2017 10:41am Reactive Lymphocytes 6 06/01/2017 7:20am 06/01/2017 10:41am Platelet Estimate ADEQUATE 06/01/2017 7:20am 06/01/2017 10:41am Platelet Morphology Comment NORMAL 06/01/2017 7:20am 06/01/2017 10: 41am Polychromasia FEW 06/01/2017 7:20am 06/01/2017 10:41am Hypochromasia SLIGHT 05/31/2017 5:55am 05/31/2017 8:00am Anisocytosis SLIGHT 06/01/2017 7:20am 06/01/2017 10:41am Red Cell Morphology Comment NORMAL 06/01/2017 7:20am 06/01/2017 10: 41am Urine Color YELLOW YELLOW 05/28/2017 2:44pm 05/28/2017 3:29pm Urine Clarity SL CLOUDY CLEAR 05/28/2017 2:44pm 05/28/2017 3:29pm Urine Specific [place] 1.020 1.010-1.025 05/28/2017 2:44pm 2017 3:29pm Urine pH 5 5 - 7 05/28/2017 2:44pm 05/28/2017 3:29pm Urine Leukocyte Esterase NEGATIVE NEGATIVE 05/28/2017 2:44pm 2017 3:29pm Urine Nitrite NEGATIVE NEGATIVE 05/28/2017 2:44pm 05/28/2017 3:29pm Urine Protein TRACE H NEGATIVE 05/28/2017 2:44pm 05/28/2017 3:29pm Urine Glucose (UA) NEGATIVE NEGATIVE 05/28/2017 2:44pm 05/28/2017 3: 29pm Urine Ketones NEGATIVE NEGATIVE 05/28/2017 2:44pm 05/28/2017 3:29pm Urine Urobilinogen 0.2 mg/dL 0.2 - 1 05/28/2017 2:44pm 05/28/2017 3: 29pm Urine Bilirubin NEGATIVE NEGATIVE 05/28/2017 2:44pm 05/28/2017 3: 29pm Urine Blood TRACE H NEGATIVE 05/28/2017 2:44pm 05/28/2017 3:29pm Urine WBC NONE /HPF 0-5 05/28/2017 2:44pm 05/28/2017 3:37pm Urine RBC 0-5 /HPF 0-5 05/28/2017 2:44pm 05/28/2017 3:37pm Urine Bacteria NONE /HPF NONE 05/28/2017 2:44pm 05/28/2017 3:37pm Urine Epithelial Cells MODERATE /LPF NONE 05/28/2017 2:44pm 05/28/2017 3:37pm Urine Amorphous Sediment MODERATE H FEW 05/28/2017 2:44pm 05/28/2017 3 :37pm Urine Yeast MODERATE H NONE 05/28/2017 2:44pm 05/28/2017 3:37pm Sodium Level 139 mmol/L 136-145 06/02/2017 6:00am 06/02/2017 6:58am Potassium Level 3.7 mmol/L 3.5-5.1 06/02/2017 6:00am 06/02/2017 6:58am Chloride Level 105 mmol/L 98-107 06/02/2017 6:00am 06/02/2017 6:58am Influenza Virus Types A,B Antigen NEGATIVE NEGATIVE 05/28/2017 2:48pm 05/28/2017 3:28pm Carbon Dioxide Level 25 mmol/L 06/02/2017 6:00am 06/02/2017 6: 58am Anion Gap 12.7 mmol/L 8-06/02/2017 6:00am 06/02/2017 6:58am Blood Urea Nitrogen 18 mg/dL 10-2806/02/2017 6:00am 06/02/2017 6:58am Creatinine 0.74 mg/dL 0.57-1.11 06/02/2017 6:00am 06/02/2017 6:58am BUN/Creatinine Ratio 24 6-25 06/02/2017 6:00am 06/02/2017 6:58am Estimat Glomerular Filtration Rate > 60 ML/MIN 60- 06/02/2017 6:00am 6:58am Ranges were taken from the National Kidney Disease Education Program and the National Kid[employer] Foundation literature. Reference ranges: 60 or greater: Normal 16-59 (for 3 consecutive months): Chronic kidney disease 15 or less: Kidney failure Glucose Level 87 mg/dL 74-118 06/02/2017 6:00am 06/02/2017 6:58am Calcium Level 9.0 mg/dL 8.4-10.2 06/02/2017 6:00am 06/02/2017 6:58am Magnesium Level 2.0 MG/DL 1.3-2.1 05/31/2017 7:15am 05/31/2017 8:04am Total Bilirubin < 0.3 mg/dL 0.2-1.2 05/28/2017 2:48pm 05/28/2017 3: 28pm Aspartate Amino Transf (AST/SGOT) 22 IU/L 5-34 05/28/2017 2:48pm 2017 3:28pm Alanine Aminotransferase (ALT/SGPT) 24 IU/L 0-55 05/28/2017 2:48pm 3:28pm Total Protein 7.8 g/dL 6.5-8.1 05/28/2017 2:48pm 05/28/2017 3:28pm Albumin 3.8 g/dL 3.5-5.0 05/28/2017 2:48pm 05/28/2017 3:28pm Globulin 4.0 g/dL H 2.3-3.5 05/28/2017 2:48pm 05/28/2017 3:28pm Albumin/Globulin Ratio 1.0 0.8-2.0 05/28/2017 2:48pm 05/28/2017 3: 28pm Alkaline Phosphatase 86 IU/L 40-150 05/28/2017 2:48pm 05/28/2017 3: 28pm Creatine Kinase 44 IU/L 29-168 05/29/2017 7:05am 05/29/2017 8:10am Creatine Kinase MB 0.80 ng/mL 0-5.0 05/29/2017 7:05am 05/29/2017 8: 36am Troponin I < 0.001 ng/mL 0-0.300 05/29/2017 7:05am 05/29/2017 8:36am Thyroid Stimulating Hormone (TSH) 0.988 uIU/mL 0.350-4.940 05/30/2017 9: 15am 05/30/2017 10:19am Microbiology Results Procedure Source Organism/Result Collection Date/Time Result Date/Time Result Status Bronchial Washings Culture Bronchial Washings, Right Upper Lobe STAPHYLOCOCCUS AUREUS-MRSA 04/30/2017 2:35pm 05/02/2017 8:30am Final Bronchial Washings Culture Bronchial Washings, Left Upper Lobe STAPHYLOCOCCUS AUREUS-MRSA 04/30/2017 2:35pm 05/02/2017 8:31am Final Blood Culture Blood STAPHYLOCOCCUS SP COAG NEG 05/28/2017 2:48pm 2017 10:21am Preliminary Blood Culture Blood NO GROWTH AFTER 5 DAYS, FINAL REPORT 05/28/2017 2:48pm 06/02/2017 3:04pm Final Urine Culture Urine,Clean Catch FIDELINA ALBICANS 05/28/2017 2:44pm 2017 2:15pm Final Procedures Procedure Status Date Provider(s) Bronchoscopy [...] two views Active 05/03/17 COLT MARISCAL MD X-ray of chest, two views Active 05/28/[address] maxillofacial area wo contrast Active 06/02/17 COLT MARISCAL MD Encounters Encounter Location Arrival/Admit Date Discharge/Depart Date Attending Provider Discharged Inpatient [facility] 05/28/17 3:13pm 06/03/17 12:44pm TRISTAN BARRIGA MD Discharged Inpatient [facility] 04/27/17 9:10am 05/04/17 7:18pm COLT MARISCAL MD Discharged Inpatient (obs) [facility] 01/10/17 4:56pm 02/19 2:45pm COLT MARISCAL MD
[2017-08-25] MEDS ORDERED: IPRATROPIUM BROMIDE 0.02% 2.5 ML NEB NEB ONE (21:45)
[2017-08-25] MEDS ORDERED: ALBUTEROL SULF 0.083% NEB SOLN 3 ML NEB NEB STA ×2 (21:45→22:02)
[2017-08-25] MEDS ORDERED: METHYLPREDNISOLONE SOD SUCC 125 MG/2ML VIAL IM ONE (21:45)
[2017-08-25 22:55] VITALS: BP 122/70
== END 2017-08-25 22:57 | disposition home or self-care (01) ==
LOC: FSED 21:23
DX: R06.00 Dyspnea, unspecified (principal); R07.89 Other chest pain; R05 Cough; J45.41 Moderate persistent asthma with (acute) exacerbation
CPT/HCPCS: 71046; 96372; 99283; J2930

== ENCOUNTER 2021-09-04 13:06 | Inpatient (IN) | payer OTHER ==
[~2021-09-04] VITALS: Ht 154.9 cm; Wt 97.1 kg
[~2021-09-04 13:06] MED LIST changes: +CELEBREX100 MG PO; +CYMBALTA30 MG PO; +LYRICA75 MG PO; +PREDNISONE20 MG PO
[2021-09-04] MEDS ORDERED: MAGNESIUM SULF 1GRAM/DEXTROSE 100 ML IV ONE ×2 (13:30→14:30)
[2021-09-04] MEDS ORDERED: SODIUM CHLORIDE 0.9% 1000ML 1,000 ML IV SCH (13:45)
[2021-09-04] MEDS ORDERED: METHYLPREDNISOLONE SOD SUCC 125 MG/2ML VIAL IV ONE (13:45)
[2021-09-04 13:49] LABS: BASOPHILS % 0.3 % (0.0-1.0); HEMOGLOBIN 13.6 g/dL (12.0-16.0); LYMPHOCYTES # (AUTO) 2.3 (1.0-3.2); LYMPHOCYTES % 36.1 % (18.0-39.1); MEAN CORPUSCULAR HEMOGLOBIN 28.9 pg (28-32); MEAN CORPUSCULAR HGB CONC 32.4 g/dL (31-35); MEAN CORPUSCULAR VOLUME 89.2 fL (81-99); MONOCYTES # (AUTO) 0.4 (0.2-0.8); MONOCYTES % 6.4 % (4.4-11.3); NEUTROPHILS # (AUTO) 3.5 (2.1-6.9); NEUTROPHILS % 56.4 % (38.7-80.0); PLATELET COUNT 196 x10e3/uL (140-360); RED BLOOD COUNT 4.71 x10e6/uL (3.6-5.1); RED CELL DISTRIBUTION WIDTH 12.6 % (11.7-14.4)
[2021-09-04 14:10] LABS: ALBUMIN 3.6 g/dL (3.5-5.0); ALBUMIN/GLOBULIN RATIO 1.1 (0.8-2.0); ANION GAP 14.5 mmol/L (8-16); CALCIUM 8.7 mg/dL (8.4-10.2); CREATININE, SERUM 0.8 mg/dL (0.57-1.11); POTASSIUM 3.5 mmol/L (3.5-5.1)
[2021-09-04] MEDS ORDERED: LACTATED RINGER'S 1,000 ML INJ ONE (16:15)
[2021-09-04 16:24] VITALS: BP 107/89
[2021-09-04 17:00] VITALS: BP_SYST 107; BP_DIAS 80; BP_DIAS 89
[2021-09-04] MEDS: ALBUTEROL/IPRATROPIUM 3 ML NEB NEB PRN (19:35)
[2021-09-04 20:00] VITALS: BP 106/73
[2021-09-04] MEDS: ACETAMINOPHEN/CODEINE 300MG - 30MG TAB PO PRN (20:15)
[2021-09-04 20:27] VITALS: BP 107/80
[2021-09-04] MEDS: METHYLPREDNISOLONE SOD SUCC 125 MG/2ML VIAL IV SCH (20:48)
[2021-09-04] MEDS ORDERED: Morphine 2mg Syringe 2 MG/ML SYR IV ONE (21:45)
[2021-09-04] MEDS ORDERED: POLYETHYLENE GLYCOL 3350 17 GM PACK PO PRN (22:00)
[2021-09-04] MEDS ORDERED: ONDANSETRON HCL INJ 2MG/ML 2ML 2 MG/ML VIAL IV PRN (22:00)
[2021-09-04] MEDS ORDERED: OSELTAMIVIR PHOSPHATE 75 MG CAP PO ONE (22:00)
[2021-09-04] MEDS ORDERED: METOPROLOL TARTRATE INJ 1 MG/ML VIAL IV PRN (22:00)
[2021-09-04] MEDS ORDERED: ACETAMINOPHEN 325 MG TAB PO PRN (22:00)
[2021-09-04] MEDS ORDERED: POTASSIUM CHLORIDE 20 MEQ TAB CR PO STA (22:10)
[2021-09-04] MEDS: ZOLPIDEM TARTRATE 10 MG TAB PO PRN ×2 (22:30→23:10)
[2021-09-05] VITALS (7 sets, daily range): BP systolic 92–107; BP diastolic 49–73
[2021-09-05] MEDS: ACETAMINOPHEN/CODEINE 300MG - 30MG TAB PO PRN (04:50)
[2021-09-05 05:59] LABS: BASOPHILS % 0.3 % (0.0-1.0); HEMATOCRIT 37.3 % (34.2-44.1); HEMOGLOBIN 12.2 g/dL (12.0-16.0); LYMPHOCYTES # (AUTO) 1.2 (1.0-3.2); LYMPHOCYTES % 19.8 % (18.0-39.1); MEAN CORPUSCULAR HEMOGLOBIN 28.4 pg (28-32); MEAN CORPUSCULAR HGB CONC 32.7 g/dL (31-35); MEAN CORPUSCULAR VOLUME 86.7 fL (81-99); MONOCYTES # (AUTO) 0.2 (0.2-0.8); MONOCYTES % 2.4 % (4.4-11.3); NEUTROPHILS # (AUTO) 4.7 (2.1-6.9); NEUTROPHILS % 76.4 % (38.7-80.0); PLATELET COUNT 188 x10e3/uL (140-360); RED CELL DISTRIBUTION WIDTH 12.4 % (11.7-14.4)
[2021-09-05 06:32] LABS: ALBUMIN 3.3 g/dL (3.5-5.0); ALBUMIN/GLOBULIN RATIO 1.1 (0.8-2.0); ANION GAP 15.4 mmol/L (8-16); CALCIUM 8.5 mg/dL (8.4-10.2); CREATININE, SERUM 0.7 mg/dL (0.57-1.11)
[2021-09-05 06:33] LABS: CHOL/HDL RATIO 3.8 (3.0-3.6); MAGNESIUM 2.1 MG/DL (1.3-2.1); PHOSPHORUS 2.8 MG/DL (2.3-4.7)
[2021-09-05 06:39] LABS: THYROID STIMULATING HORMONE 0.324 uIU/mL (0.350-4.940)
[2021-09-05 06:45] LABS: POTASSIUM 4.4 mmol/L (3.5-5.1)
[2021-09-05] MEDS: FAMOTIDINE 20 MG TAB PO SCH ×2 (08:15→16:02)
[2021-09-05] MEDS: DOCUSATE SODIUM 100 MG CAP PO SCH ×2 (09:15→16:02)
[2021-09-05] MEDS: METHYLPREDNISOLONE SOD SUCC 125 MG/2ML VIAL IV SCH ×2 (09:15→20:41)
[2021-09-05] MEDS: MONTELUKAST SODIUM 10 MG TAB PO SCH (09:16)
[2021-09-05] MEDS: OSELTAMIVIR PHOSPHATE 75 MG CAP PO SCH ×2 (09:16→16:02)
[2021-09-05] MEDS: LIDOCAINE 4% PATCH TP SCH (09:16)
[2021-09-05] MEDS: GUAIFENESIN/CODEINE 5 ML LIQD PO PRN ×2 (09:27→16:02)
[2021-09-05] MEDS ORDERED: SODIUM CHLORIDE 0.9% 1000ML 1,000 ML ONE (10:32)
[2021-09-05] MEDS: BUDESONIDE/FORMOTEROL 160/4.5MCG INHALER INH PRN (10:35)
[2021-09-05] MEDS: ALBUTEROL/IPRATROPIUM 3 ML NEB NEB PRN ×2 (10:35→19:57)
[2021-09-05] MEDS ORDERED: ESTRADIOL PATCH TOP (11:50)
[2021-09-05] MEDS ORDERED: LINZESS290 MCG PO (11:50)
[2021-09-05] MEDS ORDERED: PANTOPRAZOLE SO40 MG PO (11:53)
[2021-09-05] MEDS ORDERED: CYCLOBENZAPRINE10 MG PO (11:54)
[2021-09-05] MEDS ORDERED: HYDROMORPHONE 1MG/1ML INJ IV PRN (13:00)
[2021-09-05] MEDS: LORAZEPAM 0.5 MG TAB PO PRN (20:43)
[2021-09-05] MEDS: HYDROMORPHONE 1MG/1ML INJ IV PRN (21:26)
[2021-09-06] VITALS (8 sets, daily range): BP systolic 100–113; BP diastolic 73–76
[2021-09-06] MEDS: GUAIFENESIN/CODEINE 5 ML LIQD PO PRN ×4 (00:05→18:33)
[2021-09-06] MEDS: HYDROMORPHONE 1MG/1ML INJ IV PRN ×3 (04:15→20:23)
[2021-09-06 06:55] LABS: BASOPHILS % 0.3 % (0.0-1.0); HEMOGLOBIN 12.8 g/dL (12.0-16.0); LYMPHOCYTES # (AUTO) 1.3 (1.0-3.2); LYMPHOCYTES % 13.3 % (18.0-39.1); MEAN CORPUSCULAR HEMOGLOBIN 28.4 pg (28-32); MEAN CORPUSCULAR VOLUME 88.7 fL (81-99); MONOCYTES # (AUTO) 0.4 (0.2-0.8); NEUTROPHILS % 80.9 % (38.7-80.0); PLATELET COUNT 223 x10e3/uL (140-360); RED BLOOD COUNT 4.51 x10e6/uL (3.6-5.1); RED CELL DISTRIBUTION WIDTH 12.5 % (11.7-14.4)
[2021-09-06 07:31] LABS: ALBUMIN 3.6 g/dL (3.5-5.0); ALBUMIN/GLOBULIN RATIO 1.1 (0.8-2.0); ANION GAP 13.9 mmol/L (8-16); CALCIUM 9.2 mg/dL (8.4-10.2); CREATININE, SERUM 0.69 mg/dL (0.57-1.11); POTASSIUM 4.9 mmol/L (3.5-5.1)
[2021-09-06] MEDS: ALBUTEROL/IPRATROPIUM 3 ML NEB NEB PRN ×2 (07:45→15:42)
[2021-09-06] MEDS: BUDESONIDE/FORMOTEROL 160/4.5MCG INHALER INH PRN ×2 (08:00→19:45)
[2021-09-06] MEDS: FAMOTIDINE 20 MG TAB PO SCH (09:56)
[2021-09-06] MEDS: METHYLPREDNISOLONE SOD SUCC 125 MG/2ML VIAL IV SCH ×2 (10:05→20:23)
[2021-09-06] MEDS: MONTELUKAST SODIUM 10 MG TAB PO SCH (10:05)
[2021-09-06] MEDS: DOCUSATE SODIUM 100 MG CAP PO SCH ×2 (10:05→17:08)
[2021-09-06] MEDS: OSELTAMIVIR PHOSPHATE 75 MG CAP PO SCH ×2 (10:05→17:08)
[2021-09-06] MEDS: AZITHROMYCIN 250 MG TAB PO SCH (10:06)
[2021-09-06] MEDS: LIDOCAINE 4% PATCH TP SCH (10:06)
[2021-09-06] MEDS ORDERED: MAGNESIUM SULF 1GRAM/DEXTROSE 300 ML IV ONE (16:00)
[2021-09-06] MEDS ORDERED: PANTOPRAZOLE SOD 40 MG TABEC PO ONE (17:00)
[2021-09-06] MEDS: ALBUTEROL/IPRATROPIUM 3 ML NEB NEB SCH ×2 (19:34→23:00)
[2021-09-06] MEDS: ZOLPIDEM TARTRATE 10 MG TAB PO PRN (21:08)
[2021-09-07] VITALS (8 sets, daily range): BP systolic 101–122; BP diastolic 64–88
[2021-09-07] MEDS: ALBUTEROL/IPRATROPIUM 3 ML NEB NEB SCH ×6 (03:12→22:22)
[2021-09-07] MEDS: GUAIFENESIN/CODEINE 5 ML LIQD PO PRN ×4 (04:31→17:00)
[2021-09-07] MEDS: HYDROMORPHONE 1MG/1ML INJ IV PRN ×2 (04:32→21:10)
[2021-09-07 06:34] LABS: BASOPHILS % 0.4 % (0.0-1.0); EOSINOPHILS # (AUTO) 0.1 (0.0-0.4); HEMATOCRIT 39.4 % (34.2-44.1); HEMOGLOBIN 12.8 g/dL (12.0-16.0); LYMPHOCYTES # (AUTO) 1.3 (1.0-3.2); LYMPHOCYTES % 14.4 % (18.0-39.1); MEAN CORPUSCULAR HEMOGLOBIN 28.7 pg (28-32); MEAN CORPUSCULAR HGB CONC 32.5 g/dL (31-35); MEAN CORPUSCULAR VOLUME 88.3 fL (81-99); MONOCYTES # (AUTO) 0.5 (0.2-0.8); MONOCYTES % 5.9 % (4.4-11.3); NEUTROPHILS # (AUTO) 6.5 (2.1-6.9); NEUTROPHILS % 72.8 % (38.7-80.0); PLATELET COUNT 227 x10e3/uL (140-360); RED BLOOD COUNT 4.46 x10e6/uL (3.6-5.1); RED CELL DISTRIBUTION WIDTH 12.2 % (11.7-14.4)
[2021-09-07] MEDS: BUDESONIDE/FORMOTEROL 160/4.5MCG INHALER INH PRN ×2 (06:45→18:35)
[2021-09-07 07:17] LABS: ANION GAP 14.1 mmol/L (8-16); CALCIUM 9.1 mg/dL (8.4-10.2); CREATININE, SERUM 0.65 mg/dL (0.57-1.11); POTASSIUM 4.1 mmol/L (3.5-5.1)
[2021-09-07] MEDS ORDERED: PANTOPRAZOLE SOD 40 MG TABEC PO SCH (07:30)
[2021-09-07] MEDS: OSELTAMIVIR PHOSPHATE 75 MG CAP PO SCH ×2 (08:54→17:00)
[2021-09-07] MEDS: LIDOCAINE 4% PATCH TP SCH (08:54)
[2021-09-07] MEDS: AZITHROMYCIN 250 MG TAB PO SCH (08:54)
[2021-09-07] MEDS: DOCUSATE SODIUM 100 MG CAP PO SCH ×2 (08:54→17:00)
[2021-09-07] MEDS: MONTELUKAST SODIUM 10 MG TAB PO SCH (08:54)
[2021-09-07] MEDS: METHYLPREDNISOLONE SOD SUCC 125 MG/2ML VIAL IV SCH ×2 (08:54→20:25)
[2021-09-07] MEDS: ZOLPIDEM TARTRATE 10 MG TAB PO PRN (20:25)
[2021-09-08] VITALS (7 sets, daily range): BP systolic 104–113; BP diastolic 70–77
[2021-09-08] MEDS: ALBUTEROL/IPRATROPIUM 3 ML NEB NEB SCH ×6 (03:45→23:00)
[2021-09-08] MEDS: HYDROMORPHONE 1MG/1ML INJ IV PRN ×3 (05:35→21:30)
[2021-09-08] MEDS: BUDESONIDE/FORMOTEROL 160/4.5MCG INHALER INH PRN ×2 (06:37→19:15)
[2021-09-08] MEDS: OSELTAMIVIR PHOSPHATE 75 MG CAP PO SCH ×2 (12:08→17:05)
[2021-09-08] MEDS: METHYLPREDNISOLONE SOD SUCC 125 MG/2ML VIAL IV SCH ×2 (12:08→22:37)
[2021-09-08] MEDS: MONTELUKAST SODIUM 10 MG TAB PO SCH (12:08)
[2021-09-08] MEDS: AZITHROMYCIN 250 MG TAB PO SCH (12:08)
[2021-09-08] MEDS: LIDOCAINE 4% PATCH TP SCH (12:08)
[2021-09-08] MEDS: DOCUSATE SODIUM 100 MG CAP PO SCH ×2 (12:08→17:05)
[2021-09-08] MEDS: LORAZEPAM 0.5 MG TAB PO PRN ×2 (12:12→21:25)
[2021-09-08] MEDS: GUAIFENESIN/CODEINE 5 ML LIQD PO PRN ×2 (12:12→17:05)
[2021-09-08] MEDS: ZOLPIDEM TARTRATE 10 MG TAB PO PRN (22:37)
[2021-09-08] MEDS ORDERED: HYDROMORPHONE 1MG/1ML INJ IV ONE (23:00)
[2021-09-08] MEDS ORDERED: SUMATRIPTAN SUCCINATE 25 MG TAB PO ONE (23:00)
[2021-09-09] VITALS (7 sets, daily range): BP systolic 99–132; BP diastolic 60–89
[2021-09-09] MEDS: ALBUTEROL/IPRATROPIUM 3 ML NEB NEB SCH ×5 (03:00→23:00)
[2021-09-09 06:06] LABS: BASOPHILS # (AUTO) 0.1 (0.0-0.1); BASOPHILS % 0.5 % (0.0-1.0); HEMATOCRIT 42.8 % (34.2-44.1); LYMPHOCYTES # (AUTO) 1.8 (1.0-3.2); LYMPHOCYTES % 13.6 % (18.0-39.1); MEAN CORPUSCULAR HEMOGLOBIN 28.6 pg (28-32); MEAN CORPUSCULAR HGB CONC 32.7 g/dL (31-35); MEAN CORPUSCULAR VOLUME 87.3 fL (81-99); MONOCYTES # (AUTO) 0.5 (0.2-0.8); NEUTROPHILS # (AUTO) 9.7 (2.1-6.9); PLATELET COUNT 337 x10e3/uL (140-360); RED CELL DISTRIBUTION WIDTH 12.3 % (11.7-14.4)
[2021-09-09 06:33] LABS: ANION GAP 18.4 mmol/L (8-16); CALCIUM 9.9 mg/dL (8.4-10.2); CREATININE, SERUM 0.8 mg/dL (0.57-1.11); MAGNESIUM 2.1 MG/DL (1.3-2.1); PHOSPHORUS 4.8 MG/DL (2.3-4.7); POTASSIUM 4.4 mmol/L (3.5-5.1)
[2021-09-09] MEDS: LORAZEPAM 0.5 MG TAB PO PRN ×2 (07:06→16:56)
[2021-09-09] MEDS: HYDROMORPHONE 1MG/1ML INJ IV PRN ×2 (07:06→17:01)
[2021-09-09] MEDS: BUDESONIDE/FORMOTEROL 160/4.5MCG INHALER INH PRN (07:10)
[2021-09-09] MEDS: MONTELUKAST SODIUM 10 MG TAB PO SCH (09:28)
[2021-09-09] MEDS: OSELTAMIVIR PHOSPHATE 75 MG CAP PO SCH ×2 (09:28→16:56)
[2021-09-09] MEDS: LIDOCAINE 4% PATCH TP SCH (09:28)
[2021-09-09] MEDS: METHYLPREDNISOLONE SOD SUCC 125 MG/2ML VIAL IV SCH ×2 (09:28→22:10)
[2021-09-09] MEDS: DOCUSATE SODIUM 100 MG CAP PO SCH ×2 (09:28→16:56)
[2021-09-09] MEDS: AZITHROMYCIN 250 MG TAB PO SCH (09:28)
[2021-09-09] MEDS: GUAIFENESIN/CODEINE 5 ML LIQD PO PRN (09:30)
[2021-09-09] MEDS ORDERED: ONDANSETRON HCL INJ 2MG/ML 2ML 2 MG/ML VIAL ONE (12:16)
[2021-09-09] MEDS ORDERED: DEXAMETHASONE SOD PHOS INJ 4 MG/ML SDV ONE (12:16)
[2021-09-09] MEDS ORDERED: PROPOFOL IV EMULSION 10 MG/ML 20 ML VIAL ONE (12:16)
[2021-09-09] MEDS ORDERED: POVIDONE IODINE 0.05% 0.05 % ML PO ONE (12:16)
[2021-09-09] MEDS ORDERED: LIDOCAINE HCL 2% LOCAL INJ 5 ML SDV VIAL INJ ONE (12:16)
[2021-09-09] MEDS ORDERED: FENTANYL CITRATE/PF 100MCG/2 ML INJ ONE (13:14)
[2021-09-09] MEDS ORDERED: MIDAZOLAM HCL 2 MG/2 ML VIAL ONE (13:14)
[2021-09-09] MEDS ORDERED: LIDOCAINE HCL 4% 50 ML BTL ONE (14:50)
[2021-09-09] MEDS: ZOLPIDEM TARTRATE 10 MG TAB PO PRN (22:10)
[2021-09-10] VITALS (7 sets, daily range): BP systolic 100–111; BP diastolic 74–84
[2021-09-10] MEDS: LORAZEPAM 0.5 MG TAB PO PRN ×2 (01:15→10:56)
[2021-09-10] MEDS: HYDROMORPHONE 1MG/1ML INJ IV PRN ×2 (01:15→09:46)
[2021-09-10] MEDS: ALBUTEROL/IPRATROPIUM 3 ML NEB NEB SCH ×4 (03:00→15:00)
[2021-09-10] MEDS: BUDESONIDE/FORMOTEROL 160/4.5MCG INHALER INH PRN (07:00)
[2021-09-10] MEDS ORDERED: METHYLPREDNISOLONE SOD SUCC 40 MG/ML VIAL 1ML IV SCH (09:00)
[2021-09-10] MEDS: AZITHROMYCIN 250 MG TAB PO SCH (09:00)
[2021-09-10] MEDS: MONTELUKAST SODIUM 10 MG TAB PO SCH (09:00)
[2021-09-10] MEDS: LIDOCAINE 4% PATCH TP SCH (09:00)
[2021-09-10] MEDS: DOCUSATE SODIUM 100 MG CAP PO SCH (09:00)
[2021-09-10] MEDS ORDERED: MIRALAX17 GM PO (15:23)
[2021-09-10] MEDS ORDERED: Lidocaine Patch TP (15:23)
[2021-09-10] MEDS ORDERED: AZITHROMYCIN250 MG PO (15:23)
[2021-09-10] MEDS ORDERED: Docusate Sodium PO (15:23)
[2021-09-10] MEDS ORDERED: ACETAMINOPHEN325 M1 PO (15:23)
[2021-09-10] MEDS ORDERED: GUAIFEN-CODEINE5 ML PO (15:23)
[2021-09-10] MEDS ORDERED: Albuterol/Ipratropium Nebulize NEB (15:23)
[2021-09-10] MEDS ORDERED: PREDNISONE5 M1 PO (15:23)
[2021-09-10] MEDS ORDERED: PEPCID40 MG PO (15:40)
== END 2021-09-10 16:47 | disposition home or self-care (01) | DRG 202 ==
LOC: ER 13:12 → ERHOLD 13:33 → INTOOBSV 13:33 → OBSVTOIN 13:33 → MED/SURG3 16:00 → OBSVTOIN 09-06 11:58
PROVIDERS: ADMIT Internal Medicine; ATTEND Internal Medicine
PROC: 0BD48ZX Extraction of Right Upper Lobe Bronchus, Via Natural or Artificial Opening Endoscopic, Diagnostic (ICD-10-PCS; principal; 2021-09-09 15:15)
PROC: 0BD38ZX Extraction of Right Main Bronchus, Via Natural or Artificial Opening Endoscopic, Diagnostic (ICD-10-PCS; principal; 2021-09-09 15:15)
PROC: 0BJ08ZZ Inspection of Tracheobronchial Tree, Via Natural or Artificial Opening Endoscopic (ICD-10-PCS; principal; 2021-09-09 15:15)
DX: J45.51 Severe persistent asthma with (acute) exacerbation (principal); Z68.41 Body mass index [BMI] 40.0-44.9, adult; J11.1 Influenza due to unidentified influenza virus with other respiratory manifestations; K21.9 Gastro-esophageal reflux disease without esophagitis; Z88.1 Allergy status to other antibiotic agents; G89.29 Other chronic pain; R13.10 Dysphagia, unspecified; J10.1 Influenza due to other identified influenza virus with other respiratory manifestations; E66.01 Morbid (severe) obesity due to excess calories; R51.9 Headache, unspecified; F41.9 Anxiety disorder, unspecified; Z88.8 Allergy status to other drugs, medicaments and biological substances; Z88.6 Allergy status to analgesic agent; Z91.014 Allergy to mammalian meats; Z91.013 Allergy to seafood; K59.00 Constipation, unspecified
CPT/HCPCS: 31622; 36415; 71045; 80048; 80053; 80061; 83036; 83735; 83880; 84100; 84443; 84484; 85025; 87186; 87205; 87335; 93005; 94640; 94664; 94799; 99284; G0378; J0456; J1100; J1170; J2001; J2250; J2270; J2405; J2920; J2930; J3010; J3475; J7030; J7050

== ENCOUNTER → 2022-07-13 | Day surgery (SDC) | payer OTHER ==
[2022-07-08 10:36] LABS: BASOPHILS % 0.5 % (0.0-1.0); HEMATOCRIT 40.5 % (34.2-44.1); HEMOGLOBIN 13.2 g/dL (12.0-16.0); LYMPHOCYTES # (AUTO) 1.6 (1.0-3.2); LYMPHOCYTES % 24.9 % (18.0-39.1); MEAN CORPUSCULAR HGB CONC 32.6 g/dL (31-35); MONOCYTES # (AUTO) 0.5 (0.2-0.8); MONOCYTES % 7.9 % (4.4-11.3); NEUTROPHILS # (AUTO) 4.1 (2.1-6.9); NEUTROPHILS % 65.7 % (38.7-80.0); PLATELET COUNT 199 x10e3/uL (140-360); RED BLOOD COUNT 4.55 x10e6/uL (3.6-5.1)
[~2022-07-13] MED LIST changes: +ACETAMINOPHEN325 M1 PO; +AZITHROMYCIN250 MG PO; +Albuterol/Ipratropium Nebulize NEB; +CYCLOBENZAPRINE10 MG PO; +Docusate Sodium PO; +ESTRADIOL PATCH TOP; +FENTANYL CITRATE/PF 100MCG/2 ML INJ ONE; +GUAIFEN-CODEINE5 ML PO; +HYOSCYAMINE SULFATE 0.5 MG/ML INJ ONE; +LACTATED RINGER'S 1,000 ML ONE; +LINZESS290 MCG PO; +Lidocaine Patch TP; +MIDAZOLAM HCL 2 MG/2 ML VIAL ONE; +PEPCID40 MG PO; +PREDNISONE5 M1 PO; +PROPOFOL IV EMULSION 10 MG/ML 50 ML VIAL IV ONE
[2022-07-13 11:15] VITALS: BP 110/83
== END | disposition home or self-care (01) ==
LOC: OR 07:07
PROVIDERS: ATTEND Internal Medicine Gastroenterology
DX: Z09 Encounter for follow-up examination after completed treatment for conditions other than malignant neoplasm (principal); Z86.010 Personal history of colon polyps; K59.00 Constipation, unspecified; K64.8 Other hemorrhoids; Z01.812 Encounter for preprocedural laboratory examination; Z79.899 Other long term (current) drug therapy
CPT/HCPCS: 36415; 45378; 85025; J1980; J2250; J2704; J3010; J7121